=== PATIENT | male | born 1960 | race Caucasian/White ===

== ENCOUNTER 2021-12-18 12:05 | Inpatient (IN) | payer OTHER ==
[2021-12-18] MEDS ORDERED: SODIUM CHLORIDE 0.9% 1,000 ML IV STA (12:20)
[2021-12-18] MEDS ORDERED: SODIUM CHLORIDE 0.9% 500 ML 500 ML IV STA ×2 (12:20→12:51)
[2021-12-18] MEDS ORDERED: IPRATROPIUM-ALBUTEROL 3 ML NEB INHALATION STA (12:20)
[2021-12-18] MEDS ORDERED: methylPREDNISolone SOD SUCCI 125 MG/2 ML VIAL IV STA (12:21)
--- NOTE | 2021-12-18 12:37 | ED ---
SOB HPI - General Chief Complaint: Shortness of Breath Stated Complaint: weakness Time Seen by Provider: 12/18/21 12:05 Source: patient, EMS, RN notes reviewed Mode of arrival: EMS Limitations: no limitations - History of Present Illness Initial Comments: 59-year-old male history of COPD heavy smoker who states he's been having shortness of breath and weakness progressively getting worse over the past year discuss the over last several weeks he states she's been falling a lot. He complains of generalized weakness no focal weakness. He denies any fevers chills nausea vomiting sweats. No phlegm production at this time. No chest pain. He was brought in by EMS. He states his appetite is sometimes clear sometimes not so good. No other complaints this time no other modifying factors he does complain of increased dyspnea on exertion. Per EMS patient's pulse ox image. Room air was 92% he did improve after oxygen was applied. Additionally the patient was noted have a markedly elevated blood pressure. He does deny any headache dizziness blurry vision MD Complaint: shortness of breath - Related Data Home Medications Medication Instructions Recorded Confirmed EPINEPHrine [Primatene Mist] 2 puff INHALATION RT-HS 12/18/21 12/18/21 Allergies Allergy/AdvReac Type Severity Reaction Status Date / Time No Known Allergies Allergy Verified 12/18/21 14:19 Review of Systems ROS Statement: Those systems with pertinent positive or pertinent negative responses have been documented in the HPI. ROS Other: All systems not noted in ROS Statement are negative. Past Medical History Past Medical History: No Reported History History of Any Multi-Drug Resistant Organisms: None Reported Past Surgical History: No Surgical Hx Reported Past Psychological History: No Psychological Hx Reported Smoking Status: Current every day smoker Past Alcohol Use History: Rare Past Drug Use History: Marijuana General Exam - General Exam Comments Initial Comments: Is a well-developed well-nourished awake alert oriented 3 male with a Limitations: no limitations General appearance: alert, anxious Head exam: Present: atraumatic, normocephalic, normal inspection Eye exam: Present: normal appearance, PERRL, EOMI. Absent: scleral icterus, conjunctival injection, periorbital swelling ENT exam: Present: mucous membranes dry Neck exam: Present: normal inspection, full ROM, other (No stridor JVD or bruits). Absent: tenderness, meningismus, lymphadenopathy Respiratory exam: Present: wheezes, decreased breath sounds. Absent: respiratory distress, rales, rhonchi, stridor Cardiovascular Exam: Present: regular rate, normal rhythm, normal heart sounds. Absent: systolic murmur, diastolic murmur, rubs, gallop, clicks GI/Abdominal exam: Present: soft, normal bowel sounds. Absent: distended, tenderness, guarding, rebound, rigid Extremities exam: Present: normal inspection, full ROM, normal capillary refill. Absent: tenderness, pedal edema, joint swelling, calf tenderness Back exam: Present: normal inspection Neurological exam: Present: alert, oriented X3, CN II-XII intact Psychiatric exam: Present: normal affect, normal mood Skin exam: Present: warm, dry, intact, normal color. Absent: rash Course Vital Signs 12/18/21 12/18/21 12/18/21 12:16 12:30 13:00 Temperature 98.0 F Pulse Rate 90 86 83 Respiratory 22 20 21 Rate Blood Pressure 232/135 220/130 207/132 O2 Sat by Pulse 92 L 99 100 Oximetry 12/18/21 12/18/21 12/18/21 13:32 13:43 14:00 Temperature Pulse Rate 80 89 86 Respiratory 20 Rate Blood Pressure 209/117 O2 Sat by Pulse Oximetry 12/18/21 12/18/21 12/18/21 14:30 15:00 15:30 Temperature Pulse Rate 89 93 Respiratory 22 19 18 Rate Blood Pressure 207/120 205/104 201/115 O2 Sat by Pulse 96 99 Oximetry 12/18/21 16:00 Temperature Pulse Rate 98 Respiratory 19 Rate Blood Pressure 193/105 O2 Sat by Pulse 97 Oximetry - Reevaluation(s) Reevaluation #1: 12/18/21 14:34 Further information from family members patient is a heavy drinker he drinks up to a fifth a day of alcohol. Is unclear when her last drink was. Medical Decision Making - Medical Decision Making I did discuss Pf[employer] the patient family as well as with Dr. Long patient will be admitted for treatment of COPD exacerbation also elevated blood pressure. It was from family members that we obtain information the patient may drink up to a fifth of alcohol a day patient denies this. Currently no alcohol in system no clinical evidence of DVTs. - Lab Data Result diagrams: 12/18/21 12:24 12/18/21 12:24 Lab Results 12/18/21 12/18/21 12/18/21 Range/Units 12:24 12:24 12:24 WBC 9.2 (3.8-10.6) k/uL RBC 4.47 (4.30-5.90) m/uL Hgb 16.4 (13.0-17.5) gm/dL Hct 49.2 (39.0-53.0) % MCV 110.1 H (80.0-100.0) fL MCH 36.8 H (25.0-35.0) pg MCHC 33.4 (31.0-37.0) g/dL RDW 15.3 (11.5-15.5) % Plt Count 298 (150-450) k/uL MPV 7.1 Neutrophils % 71 % Lymphocytes % 18 % Monocytes % 6 % Eosinophils % 2 % Basophils % 1 % Neutrophils # 6.5 (1.3-7.7) k/uL Lymphocytes # 1.7 (1.0-4.8) k/uL Monocytes # 0.6 (0-1.0) k/uL Eosinophils # 0.2 (0-0.7) k/uL Basophils # 0.1 (0-0.2) k/uL Manual Slide Review Performed Macrocytosis Marked A PT 10.6 (9.0-12.0) sec INR 1.0 (<1.2) APTT 24.5 (22.0-30.0) sec D-Dimer 1.22 H (<0.60) mg/L FEU Sodium 139 (137-145) mmol/L Potassium 4.2 (3.5-5.1) mmol/L Chloride 98 (98-107) mmol/L Carbon Dioxide 29 (22-30) mmol/L Anion Gap 12 mmol/L BUN 22 H (9-20) mg/dL Creatinine 0.76 (0.66-1.25) mg/dL Est GFR (CKD-EPI)AfAm >90 (>60 ml/min/1.73 sqM) Est GFR (CKD-EPI)NonAf >90 (>60 ml/min/1.73 sqM) Glucose 114 H (74-99) mg/dL Plasma Lactic Acid Rajinder (0.7-2.0) mmol/L Calcium 9.2 (8.4-10.2) mg/dL Magnesium 1.6 (1.6-2.3) mg/dL Total Bilirubin 0.7 (0.2-1.3) mg/dL AST 53 (17-59) U/L ALT 26 (4-49) U/L Alkaline Phosphatase 168 H (38-126) U/L Troponin I (0.000-0.034) ng/mL NT-Pro-B Natriuret Pep pg/mL Total Protein 7.6 (6.3-8.2) g/dL Albumin 3.9 (3.5-5.0) g/dL Lipase (23-300) U/L Urine Color Urine Appearance (Clear) Urine pH (5.0-8.0) Ur Specific [place] (1.001-1.035) Urine Protein (Negative) Urine Glucose (UA) (Negative) Urine Ketones (Negative) Urine Blood (Negative) Urine Nitrite (Negative) Urine Bilirubin (Negative) Urine Urobilinogen (<2.0) mg/dL Ur Leukocyte Esterase (Negative) Serum Alcohol mg/dL Coronavirus (PCR) (Not Detectd) 12/18/21 12/18/21 12/18/21 Range/Units 12:24 12:24 12:24 WBC (3.8-10.6) k/uL RBC (4.30-5.90) m/uL Hgb (13.0-17.5) gm/dL Hct (39.0-53.0) % MCV (80.0-100.0) fL MCH (25.0-35.0) pg MCHC (31.0-37.0) g/dL RDW (11.5-15.5) % Plt Count (150-450) k/uL MPV Neutrophils % % Lymphocytes % % Monocytes % % Eosinophils % % Basophils % % Neutrophils # (1.3-7.7) k/uL Lymphocytes # (1.0-4.8) k/uL Monocytes # (0-1.0) k/uL Eosinophils # (0-0.7) k/uL Basophils # (0-0.2) k/uL Manual Slide Review Macrocytosis PT (9.0-12.0) sec INR (<1.2) APTT (22.0-30.0) sec D-Dimer (<0.60) mg/L FEU Sodium (137-145) mmol/L Potassium (3.5-5.1) mmol/L Chloride (98-107) mmol/L Carbon Dioxide (22-30) mmol/L Anion Gap mmol/L BUN (9-20) mg/dL Creatinine (0.66-1.25) mg/dL Est GFR (CKD-EPI)AfAm (>60 ml/min/1.73 sqM) Est GFR (CKD-EPI)NonAf (>60 ml/min/1.73 sqM) Glucose (74-99) mg/dL Plasma Lactic Acid Rajinder 1.7 (0.7-2.0) mmol/L Calcium (8.4-10.2) mg/dL Magnesium (1.6-2.3) mg/dL Total Bilirubin (0.2-1.3) mg/dL AST (17-59) U/L ALT (4-49) U/L Alkaline Phosphatase (38-126) U/L Troponin I 0.012 (0.000-0.034) ng/mL NT-Pro-B Natriuret Pep pg/mL Total Protein (6.3-8.2) g/dL Albumin (3.5-5.0) g/dL Lipase (23-300) U/L Urine Color Yellow Urine Appearance Clear (Clear) Urine pH 7.0 (5.0-8.0) Ur Specific [place] 1.024 (1.001-1.035) Urine Protein Trace H (Negative) Urine Glucose (UA) Negative (Negative) Urine Ketones Negative (Negative) Urine Blood Negative (Negative) Urine Nitrite Negative (Negative) Urine Bilirubin Negative (Negative) Urine Urobilinogen <2.0 (<2.0) mg/dL Ur Leukocyte Esterase Negative (Negative) Serum Alcohol mg/dL Coronavirus (PCR) (Not Detectd) 12/18/21 12/18/21 12/18/21 Range/Units 12:24 12:24 14:38 WBC (3.8-10.6) k/uL RBC (4.30-5.90) m/uL Hgb (13.0-17.5) gm/dL Hct (39.0-53.0) % MCV (80.0-100.0) fL MCH (25.0-35.0) pg MCHC (31.0-37.0) g/dL RDW (11.5-15.5) % Plt Count (150-450) k/uL MPV Neutrophils % % Lymphocytes % % Monocytes % % Eosinophils % % Basophils % % Neutrophils # (1.3-7.7) k/uL Lymphocytes # (1.0-4.8) k/uL Monocytes # (0-1.0) k/uL Eosinophils # (0-0.7) k/uL Basophils # (0-0.2) k/uL Manual Slide Review Macrocytosis PT (9.0-12.0) sec INR (<1.2) APTT (22.0-30.0) sec D-Dimer (<0.60) mg/L FEU Sodium (137-145) mmol/L Potassium (3.5-5.1) mmol/L Chloride (98-107) mmol/L Carbon Dioxide (22-30) mmol/L Anion Gap mmol/L BUN (9-20) mg/dL Creatinine (0.66-1.25) mg/dL Est GFR (CKD-EPI)AfAm (>60 ml/min/1.73 sqM) Est GFR (CKD-EPI)NonAf (>60 ml/min/1.73 sqM) Glucose (74-99) mg/dL Plasma Lactic Acid Rajinder (0.7-2.0) mmol/L Calcium (8.4-10.2) mg/dL Magnesium (1.6-2.3) mg/dL Total Bilirubin (0.2-1.3) mg/dL AST (17-59) U/L ALT (4-49) U/L Alkaline Phosphatase (38-126) U/L Troponin I (0.000-0.034) ng/mL NT-Pro-B Natriuret Pep 528 pg/mL Total Protein (6.3-8.2) g/dL Albumin (3.5-5.0) g/dL Lipase 42 (23-300) U/L Urine Color Urine Appearance (Clear) Urine pH (5.0-8.0) Ur Specific [place] (1.001-1.035) Urine Protein (Negative) Urine Glucose (UA) (Negative) Urine Ketones (Negative) Urine Blood (Negative) Urine Nitrite (Negative) Urine Bilirubin (Negative) Urine Urobilinogen (<2.0) mg/dL Ur Leukocyte Esterase (Negative) Serum Alcohol <10 mg/dL Coronavirus (PCR) Not Detected (Not Detectd) - EKG Data -: EKG Interpreted by Me EKG shows normal: sinus rhythm EKG Comments: No signs of 87. ND interval 149 QRS 79 QT since QTC 363/[address]-T wave changes some artifact present - Radiology Data Radiology results: report reviewed (Imaging revealed report no evidence of acute pulmonary embolus or some evidence of some scattered pulmonary markings but no definitive infiltrate), image reviewed Critical Care Time Critical Care Time: Yes Total Critical Care Time: 39 Critical Care Time: Critical care time included initial presentation with history physical labs x-ra ys discussed with paramedics upon arrival multiple reevaluation the patient discussed with the patient family discussed with the medicine physician admission orders and documentation of the above Disposition Clinical Impression: COPD with exacerbation, Bronchitis, Hypertensive urgency, Dehydration Disposition: ADMITTED IP TO THIS [facility] Condition: Fair Referrals: None,Stated [Primary Care Provider] - 1-2 days Decision Date: 12/18/21 Decision Time: 16:00
[2021-12-18 13:08] LABS: Basophils # (A) 0.1 k/uL (0-0.2); Basophils % (A) 1 %; Eosinophils # (A) 0.2 k/uL (0-0.7); Eosinophils % (A) 2 %; HCT 49.2 % (39.0-53.0); HGB 16.4 gm/dL (13.0-17.5); Lymphocytes # (A) 1.7 k/uL (1.0-4.8); Lymphocytes % (A) 18 %; MCH 36.8 pg (25.0-35.0); MCHC 33.4 g/dL (31.0-37.0); MCV 110.1 fL (80.0-100.0); Macrocytosis Marked; Mean Platelet Volume 7.1; Monocytes # (A) 0.6 k/uL (0-1.0); Monocytes % (A) 6 %; Neutrophils # (A) 6.5 k/uL (1.3-7.7); Neutrophils % (A) 71 %; Partial Thromboplastin Time 24.5 sec (22.0-30.0); Platelet Count 298 k/uL (150-450); Prothrombin Time 10.6 sec (9.0-12.0); RBC 4.47 m/uL (4.30-5.90); RDW 15.3 % (11.5-15.5); WBC 9.2 k/uL (3.8-10.6)
[2021-12-18 13:09] LABS: ALT 26 U/L (4-49); AST 53 U/L (17-59); African American GFR (CKD) >90 (>60 ml/min/1.73 sqM); Albumin 3.9 g/dL (3.5-5.0); Alkaline Phosphatase 168 U/L (38-126); Anion Gap 12 mmol/L; Blood Urea Nitrogen 22 mg/dL (9-20); Calcium 9.2 mg/dL (8.4-10.2); Carbon Dioxide 29 mmol/L (22-30); Chloride 98 mmol/L (98-107); Glucose 114 mg/dL (74-99); Magnesium 1.6 mg/dL (1.6-2.3); Non-African American GFR(CKD) >90 (>60 ml/min/1.73 sqM); Potassium 4.2 mmol/L (3.5-5.1); Sodium 139 mmol/L (137-145); Total Bilirubin 0.7 mg/dL (0.2-1.3); Total Protein 7.6 g/dL (6.3-8.2)
--- NOTE | 2021-12-18 13:43 | CT ---
EXAMINATION TYPE: CT brain wo con CT DLP: 1149.4 mGycm, Automated exposure control for dose reduction was used. DATE OF EXAM: 12/18/2021 1:28 PM COMPARISON: None. CLINICAL INDICATION:Male, 61 years old with history of Head trauma, minor, normal mental status, head trauma, minor, normal mental status TECHNIQUE: Brain: Axial CT images of the brain were obtained with coronal and sagittal reformats created and rev iewed. Contrast used: None. Oral contrast used: None. FINDINGS: Brain: Extra-axial spaces: No abnormal extra-axial fluid collections. Ventricular system: Within normal limits Cerebral parenchyma: Encephalomalacia the left posterior parietal region from remote injury. Hypodens e injury of the left ha. No acute intraparenchymal hemorrhage or mass effect. The blevins-white junct ion is well differentiated. Cerebellum: Unremarkable. Mass effect: No evidence of midline shift. Intracranial vasculature: Atherosclerotic calcifications of the intracranial vessels. Soft tissues: Normal. Calvarium/osseous structures: No depressed skull fracture. Paranasal sinuses and mastoid air cells: Mild scattered paranasal sinus disease. Visualized orbits: Orbital contents are intact. IMPRESSION: 1. No acute intracranial process. 2. 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
--- NOTE | 2021-12-18 14:08 | XR ---
EXAMINATION TYPE: XR chest 2V DATE OF EXAM: 12/18/2021 COMPARISON: None HISTORY: 61 year-old male shortness of breath, difficulty breathing, CHF TECHNIQUE: AP and lateral views FINDINGS: Heart limits of normal in size. Aorta and pulmonary vasculature within normal limits. Hyperinflation. Possible subtle pulmonary nodule versus nipple shadow periphery of the left mid to lower lung. No co nsolidation or pleural effusion. IMPRESSION: COPD and borderline heart size. No definite acute process. Nodularity peripherally in the left mid to lower lung could represent nipple shadow. Follow-up radiograph with nipple marker in 4-6 weeks to re assess.
[2021-12-18] MEDS ORDERED: hydrALAZINE HCL 20 MG/ML 1 ML VIAL IVP STA ×2 (14:13→15:33)
--- NOTE | 2021-12-18 14:57 | CT ---
EXAMINATION TYPE: CT angio chest CT DLP: 328.8 mGycm, Automated exposure control for dose reduction was used. DATE OF EXAM: 12/18/2021 2:42 PM COMPARISON: Chest radiograph from same day. CLINICAL INDICATION:Male, 61 years old with history of PE suspected; TECHNIQUE/CONTRAST: CTA scan of the thorax is performed with IV Contrast, patient injected with 100 mL of Isovue 370, pul monary embolism protocol. MIP images are created and reviewed. FINDINGS: Pulmonary Artery: There is no evidence for a filling defect within the pulmonary vasculature to sugge st acute pulmonary embolism. The pulmonary artery is of normal size. Lungs/Pleura: Few scattered opacities are seen within the lingula. And peripheral right lower lobe. N o evidence of focal consolidation, pleural effusion or pneumothorax. Airway: Opacified right lower lobe airway seen on series 406 image 103. Heart: Heart is within normal limits for size.. Vasculature: No evidence of aortic aneurysm. Mediastinum: No gross evidence of adenopathy. Musculoskeletal: No acute osseous abnormalities Soft Tissues: Bilateral gynecomastia changes noted. Lower neck: No significant findings. Upper Abdomen: Biliary sludge versus vicarious excretion of contrast. IMPRESSION: 1. No evidence of pulmonary embolism. 2. Scattered airspace opacities within the lingula and right peripheral lateral lower lobe concerning for infectious/inflammatory process. 3. Single right lower lobe which is opacified likely representing retained secretions.
[2021-12-18 15:10] LABS: Alcohol <10 mg/dL; Lipase 42 U/L (23-300)
[2021-12-18 15:27] LABS: Appearance,Urine Clear (Clear); Bilirubin,Urine Negative (Negative); Blood,Urine Negative (Negative); Color,Urine Yellow; Glucose,Urine (UA) Negative (Negative); Ketones,Urine Negative (Negative); Leukocyte Esterase,Urine Negative (Negative); Nitrite,Urine Negative (Negative); Protein,Urine Trace (Negative); Specific Gravity,Urine 1.024 (1.001-1.035); Urobilinogen,Urine <2.0 mg/dL (<2.0)
[2021-12-18] MEDS ORDERED: NALOXONE 0.4 MG/ML 1 ML VIAL IV PRN (16:53)
[2021-12-18] MEDS ORDERED: ACETAMINOPHEN TAB 325 MG TAB PO PRN (16:53)
[2021-12-18] MEDS ORDERED: LEVOFLOXACIN 750 MG TAB PO STA (16:58)
[2021-12-18] MEDS ORDERED: hydrALAZINE HCL 20 MG/ML 1 ML VIAL IVP PRN (17:15)
--- NOTE | 2021-12-18 17:23 | P.HPIM ---
History of Present Illness H&P Date: 12/18/21 Chief Complaint: Shortness of breath and weakness Patient is a 59-year-old male with a past medical history of tobacco abuse and likely underlying COPD who presents to the ED because his brother told him to come in. Patient states that his brother saw him at home and did not like the way he looked so told him to come in to get evaluated. Patient states that he has been having shortness of breath for years and over the last week he noticed increased sputum production. He also states that he has had weakness for years and again over the last week he has noticed that he has been falling more. Patient states that he lives alone at home. He states that he depends on his brother to get all his groceries. Patient states that he smokes 1 and 1/2 pack per day. He states that he hasn't seen a physician since he was in the which was "many years ago". He states that he drinks 2 shots of alcohol at night to help him sleep. He is currently denying any withdrawal symptoms or urge to smoke. Patient states that he wants to quit smoking and make a change in his life. In the ED patient's labs were unremarkable except for an elevated d-dimer and A LP. So patient had a CTA chest done that was negative for pulmonary embolism but did show scattered areas of opacities within the lingula and right peripheral lateral lobe and single right lower lobe which is opacified likely due to retained secretions. Patient denies any fever or chills. His WBC is 9.2. He is afebrile. Patient was given Levaquin and breathing treatments and IV Solu-Medrol for COPD exacerbation. In the ED patient's blood pressure was also above 200 systolically. He was gi akrmen IV hydralazine. Patient denies taking any medications at home. Review of Systems 10 ROS reviewed and are negative except as noted in HPI Past Medical History Past Medical History: No Reported History History of Any Multi-Drug Resistant Organisms: None Reported Past Surgical History: No Surgical Hx Reported Past Psychological History: No Psychological Hx Reported Smoking Status: Current every day smoker Past Alcohol Use History: Rare Past Drug Use History: Marijuana Medications and Allergies Home Medications Medication Instructions Recorded Confirmed Type EPINEPHrine [Primatene Mist] 2 puff INHALATION RT-HS 12/18/21 12/18/21 History Allergies Allergy/AdvReac Type Severity Reaction Status Date / Time No Known Allergies Allergy Verified 12/18/21 14:19 Physical Exam Osteopathic Statement: *. No significant issues noted on an osteopathic structural exam other than those noted in the History and Physical/Consult. Vitals: Vital Signs Temp Pulse Resp BP Pulse Ox 12/18/21 17:00 94 18 183/96 97 12/18/21 16:30 98 17 181/106 99 12/18/21 16:00 98 19 193/105 97 12/18/21 15:30 93 18 201/115 99 12/18/21 15:00 89 19 205/104 96 12/18/21 14:30 22 207/120 12/18/21 14:00 86 20 209/117 12/18/21 13:43 89 12/18/21 13:32 80 12/18/21 13:00 83 21 207/132 100 12/18/21 12:30 86 20 220/130 99 12/18/21 12:16 98.0 F 90 22 232/135 92 L Intake and Output 12/18/21 12/18/21 12/18/21 06:59 14:59 22:59 Other: Weight 68.039 kg General: [Alert and oriented, appears chronically debilitated Appears older than his age]. Eye: [PERRL, EOMI, normal conjunctiva]. HENT: [Normocephalic, clear tympanic membranes, normal hearing, dry oral mucosa, no scleral icterus, no sinus tenderness]. Neck: [Supple, non-tender, no carotid bruits, no JVD, no lymphadenopathy]. Lungs: [Diminished breath sounds bilaterally, non-labored respiration]. Heart: [Normal rate, regular rhythm, no murmur, gallop or edema]. Abdomen: [Soft, non-tender, non-distended, normal bowel sounds, no masses]. Musculoskeletal: [Normal range of motion and strength, no tenderness or swelling]. Neurologic: [Awake, alert, and oriented X3, CN II-XII intact]. Psychiatric: [Cooperative, appropriate mood and affect]. Results CBC & Chem 7: 12/18/21 12:24 12/18/21 12:24 Labs: Abnormal Lab Results - Last 24 Hours (Table) 12/18/21 12/18/21 12/18/21 Range/Units 12:24 12:24 12:24 MCV 110.1 H (80.0-100.0) fL MCH 36.8 H (25.0-35.0) pg Macrocytosis Marked A D-Dimer 1.22 H (<0.60) mg/L FEU BUN 22 H (9-20) mg/dL Glucose 114 H (74-99) mg/dL Alkaline Phosphatase 168 H (38-126) U/L Urine Protein (Negative) 12/18/21 Range/Units 12:24 MCV (80.0-100.0) fL MCH (25.0-35.0) pg Macrocytosis D-Dimer (<0.60) mg/L FEU BUN (9-20) mg/dL Glucose (74-99) mg/dL Alkaline Phosphatase (38-126) U/L Urine Protein Trace H (Negative) Assessment and Plan Assessment: Shortness of breath Likely due to COPD exacerbation and acute bronchitis Doubt patient has pneumonia since he has no fever or leukocytosis We'll start the patient on duo nebs, steroids, Levaquin We'll consult pulmonology as patient will need close follow-up and we'll also need to be started on inhalers Hypertension urgency We'll start the patient on losartan and nifedipine Generalized weakness Consult PT OT Elevated ALP Patient denying any right upper quadrant pain We'll check a PSA Elevated d-dimer CTA chest negative for pulmonary embolism No clinical evidence of DVT Noncompliant with follow-up Patient counseled that he needs to follow-up with his doctors closely. History of alcohol use Patient counseled on alcohol cessation On admission his alcohol level is less than 10 and patient has no withdrawal symptoms We'll continue to monitor closely for any withdrawal symptoms Tobacco abuse Nicotine patch CODE STATUS:full code DVT prophylaxis: Lovenox Discussed with: Patient, ER, rn Anticipated length of stay < than [address]: home versus group home facility A total of 50 minutes was spent on the care of this complex patient more than 50% of the time was spent in counseling and care coordination.
[2021-12-18] MEDS: SODIUM CHLORIDE 0.9% 1,000 ML IV SCH (19:00)
[2021-12-18] MEDS: NICOTINE 21MG/24HR PATCH TRANSDERM SCH (19:00)
[2021-12-18] MEDS: LOSARTAN 50 MG TAB PO SCH (19:00)
[2021-12-18] MEDS: methylPREDNISolone SOD SUCCI 125 MG/2 ML VIAL IV SCH ×2 (19:00→23:20)
[2021-12-18] MEDS: IPRATROPIUM-ALBUTEROL 3 ML NEB INHALATION SCH (19:09)
[2021-12-18] MEDS: NIFEdipine XL 30 MG TAB.ER.24 PO SCH (19:33)
[2021-12-18 20:37] LABS: Glucose,Whole Blood 178 mg/dL (70-110)
[2021-12-19] MEDS ORDERED: IPRATROPIUM-ALBUTEROL 3 ML NEB INHALATION PRN (00:31)
[2021-12-19] MEDS: IPRATROPIUM-ALBUTEROL 3 ML NEB INHALATION SCH ×5 (00:40→20:19)
[2021-12-19] MEDS: SODIUM CHLORIDE 0.9% 1,000 ML IV SCH ×4 (05:00→23:59)
[2021-12-19] MEDS: methylPREDNISolone SOD SUCCI 125 MG/2 ML VIAL IV SCH ×4 (05:08→23:58)
[2021-12-19 06:04] LABS: Glucose,Whole Blood 133 mg/dL (70-110)
[2021-12-19] MEDS: ENOXAPARIN 40 MG/0.4 ML SYRINGE SQ SCH (08:20)
[2021-12-19] MEDS: LOSARTAN 50 MG TAB PO SCH (08:20)
[2021-12-19] MEDS: NICOTINE 21MG/24HR PATCH TRANSDERM SCH (08:20)
[2021-12-19] MEDS: NIFEdipine XL 30 MG TAB.ER.24 PO SCH (08:21)
--- NOTE | 2021-12-19 14:09 | P.CNPUL ---
History of Present Illness Consult date: 12/19/21 Reason for consult: dyspnea, COPD History of present illness: This is a 59-year-old male patient, came into the hospital because of worsening shortness of breath. He was told by family members to presented to the hospital as the patient was having significant amount of difficulties breathing. Is a chronic smoker. He has not seen a air launch weapons technician in the past. The patient was smoking many ask of cigarettes a day needs trying to quit smoking for now. He continues to smoke 1 pack of cigarettes a day. No maintenance inhalers. No Oxygen therapy. No previous hospitalizations for any pulmonary related complications. The patient was using Primatene Mist on outpatient basis. The patient presented to the hospital because of increased dyspnea. Cough and congestion and wheezing was also present. No hemoptysis. No pleurisy. Chest x-ray was done. CT angiogram was done. No evidence of any pulmonary embolism. Some limited scattered opacities bilaterally involving the lingula in the periphery of the lower lobes that was attributed to retained secretions. The white cell count was at 9.2 with a hemoglobin of 16.4 and a platelet count of 298. BUN is at 22 with a creatinine 0.7. Sodium is at 139. The patient has a negative UA. Alcohol level was negative. COVID 19 testing was negative. The patient states that he has taken vaccination 2 for COVID 19. He is currently on a combination of bronchodilators and steroids and is also on empiric antibiotic coverage with Levaquin. IV fluids of normal saline at the rate of 130 mL an hour. Most of any cardiac disease. Review of Systems Constitutional: Denies chills, Denies fever Eyes: denies as per HPI, denies blurred vision, denies bulging eye, denies decreased vision, denies diplopia, denies discharge, denies dry eye, denies irritation, denies itching, denies pain, denies photophobia, denies loss of pe ripheral vision, denies loss of vision, denies tunnel vision/blind spots Ears: deny: decreased hearing, ear discharge, earache, tinnitus Ears, nose, mouth and throat: Reports as per HPI Breasts: absent: as per HPI, gynecomastia Cardiovascular: Reports decreased exercise tolerance, Reports dyspnea on exertion Respiratory: Reports cough, Reports cough with sputum, Reports dyspnea, Reports wheezing Gastrointestinal: Reports as per HPI Genitourinary: Reports as per HPI Musculoskeletal: Reports as per HPI Musculoskeletal: absent: ankle pain, ankle stiffness, ankle swelling Integumentary: Reports as per HPI Neurological: Reports as per HPI Psychiatric: Reports as per HPI Endocrine: Reports as per HPI Hematologic/Lymphatic: Reports as per HPI Allergic/Immunologic: Reports as per HPI Past Medical History Past Medical History: No Reported History, COPD History of Any Multi-Drug Resistant Organisms: None Reported Past Surgical History: No Surgical Hx Reported Past Anesthesia/Blood Transfusion Reactions: No Reported Reaction Past Psychological History: No Psychological Hx Reported Smoking Status: Current every day smoker Past Alcohol Use History: Rare Past Drug Use History: Marijuana Medications and Allergies Home Medications Medication Instructions Recorded Confirmed Type EPINEPHrine [Primatene Mist] 2 puff INHALATION RT-HS 12/18/21 12/18/21 History Allergies Allergy/AdvReac Type Severity Reaction Status Date / Time No Known Allergies Allergy Verified 12/18/21 14:19 Physical Exam Vitals: Vital Signs Temp Pulse Pulse Resp BP BP Pulse Ox 12/19/21 11:44 104 H 12/19/21 11:32 99 12/19/21 11:18 101 H 17 144/84 97 12/19/21 08:07 96 12/19/21 08:00 101 H 16 147/86 95 12/19/21 07:56 95 12/19/21 04:00 85 18 152/88 95 12/19/21 02:00 86 21 12/19/21 00:00 97.7 F 86 20 165/90 97 12/18/21 20:29 169/98 12/18/21 20:00 98.0 F 90 20 185/100 96 12/18/21 19:19 92 12/18/21 19:09 90 12/18/21 17:00 94 18 183/96 97 12/18/21 16:30 98 17 181/106 99 12/18/21 16:00 98 19 193/105 97 12/18/21 15:30 93 18 201/115 99 12/18/21 15:00 89 19 205/104 96 12/18/21 14:30 22 207/120 12/18/21 14:00 86 20 209/117 12/18/21 13:43 89 12/18/21 13:32 80 12/18/21 13:00 83 21 207/132 100 12/18/21 12:30 86 20 220/130 99 12/18/21 12:16 98.0 F 90 22 232/135 92 L Intake and Output 12/18/21 12/19/21 12/19/21 22:59 06:59 14:59 Intake Total 260 Output Total 300 Balance -40 Intake: Intake, IV Titration 260 Amount Sodium Chloride 0.9% 1, 260 000 ml @ 130 mls/hr IV . Q7H42M [facility] Rx#:[id number] Output: Urine 300 Other: Voiding Method Urinal Urinal # Voids 2 Weight 68.039 kg The patient appeared well nourished and normally developed. Vital signs as documented. Head exam is unremarkable. No scleral icterus or corneal arcus no dmitri. Neck is without jugular venous distension, thyromegaly, or carotid bruits. Carotid upstrokes are brisk bilaterally. Lungs sounds are diminished and the patient is diffuse expiratory wheezes throughout the lung his bilaterally and the patient is prolongation of exhalation phase of breathing.. Cardiac exam reveals the PMI to be normally sized and situated. Rhythm is regular. First and second heart sounds normal. No murmurs, rubs or gallops. Abdominal exam reveals normal bowel sounds, no masses, no organomegaly and no aortic enlargement. Extremities are nonedematous and both femoral and pedal pulses are normal.Examination of the skin revealed no evidence of significant rashes, suspicious appearing nevi or other concerning lesions.Neurologically, the patient is awake and alert and the patient does not have any focal neurological deficit. Cranial nerves are essentially intact. Results - Laboratory Findings CBC and BMP: 12/18/21 12:24 12/18/21 12:24 PT/INR, D-dimer PT 10.6 sec (9.0-12.0) 12/18/21 12:24 INR 1.0 (<1.2) 12/18/21 12:24 D-Dimer 1.22 mg/L FEU (<0.60) H 12/18/21 12:24 Abnormal lab findings: Abnormal Labs 12/18/21 12/18/21 12/18/21 12:24 12:24 12:24 MCV 110.1 H MCH 36.8 H Macrocytosis Marked A D-Dimer 1.22 H BUN 22 H Glucose 114 H POC Glucose (mg/dL) Alkaline Phosphatase 168 H Urine Protein 12/18/21 12/18/21 12/19/21 12:24 20:36 06:01 MCV MCH Macrocytosis D-Dimer BUN Glucose POC Glucose (mg/dL) 178 H 133 H Alkaline Phosphatase Urine Protein Trace H - Diagnostic Findings Chest x-ray: image reviewed CT scan - chest: image reviewed Assessment and Plan Plan: Acute COPD exacerbation Shortness of breath secondary to above. The patient's has acute on top of chronic dyspnea and his chronic shortness of breath related to COPD. Acute hypoxic respiratory failure secondary to above, currently on 2 L O2 nasal cannula Smoker Hypertension Plan Agree on the current treatment Continue bronchodilators and steroids and antibiotics Smoking cessation counseling was done We'll need outpatient follow-up regarding COPD. We'll regulate and just maintenance insulin medications for COPD and obtain a pulmonary function test and monitor patient regular basis. CAT scan of the chest was noted. No e vidence of any malignancy. Presentation is typical for COPD exacerbation. Nicotine patch BP control medicine Empiric antibiotic coverage with Levaquin 750 mg for the next 5-7 days We'll follow
--- NOTE | 2021-12-19 14:49 | P.PN ---
Subjective Progress Note Date: 12/19/21 Patient stated that his breathing is much better today. Patient blood pressures also better controlled. Objective - Vital Signs Vital signs: Vital Signs Temp 97.7 F 12/19/21 12:00 Pulse 87 12/19/21 14:00 Resp 17 12/19/21 14:00 BP 143/83 12/19/21 12:00 Pulse Ox 96 12/19/21 12:00 FiO2 Intake & Output 12/18/21 12/19/21 12/19/21 18:59 06:59 18:59 Intake Total 260 Output Total 300 Balance -40 Weight 68.039 kg Intake: Intake, IV Titration 260 Amount Sodium Chloride 0.9% 1, 260 000 ml @ 130 mls/hr IV . Q7H42M [facility] Rx#:[id number] Output: Urine 300 Other: Voiding Method Urinal # Voids 2 - Exam General examination - Alert and Oriented 3 in NAD, appears chronically debilitated Heart - + S1S2 no murmurs Lungs -diminished breath sounds bilaterally Abdomen soft NT ND +ve BS Extremities - No edema MEDICARE SPECIALIST - Moving all 4 extremities spontaneously Psych - Calm and cooperative - Labs CBC & Chem 7: 12/18/21 12:24 12/18/21 12:24 Labs: Abnormal Lab Results - Last 24 Hours (Table) 12/18/21 12/18/21 12/19/21 Range/Units 12:24 20:36 06:01 POC Glucose (mg/dL) 178 H 133 H (70-110) mg/dL Urine Protein Trace H (Negative) Assessment and Plan Assessment: Shortness of breath Likely due to COPD exacerbation and acute bronchitis Doubt patient has pneumonia since he has no fever or leukocytosis Resume duo nebs, steroids, Levaquin Pulmonology following Improving Hypertension urgency Patient started on losartan and nifedipine Blood pressure better controlled this morning Generalized weakness Consult PT OT Elevated ALP Patient denying any right upper quadrant pain We'll check a PSA Elevated d-dimer CTA chest negative for pulmonary embolism No clinical evidence of DVT Noncompliant with follow-up Patient counseled that he needs to follow-up with his doctors closely. History of alcohol use Patient counseled on alcohol cessation On admission his alcohol level is less than 10 and patient has no withdrawal symptoms We'll continue to monitor closely for any withdrawal symptoms Tobacco abuse Nicotine patch CODE STATUS:full code DVT prophylaxis: Lovenox Anticipated discharge place: home versus snf facility
[2021-12-19] MEDS: LEVOFLOXACIN 750 MG TAB PO SCH (16:40)
[2021-12-19 17:07] LABS: Glucose,Whole Blood 175 mg/dL (70-110)
[2021-12-19 20:13] LABS: Glucose,Whole Blood 192 mg/dL (70-110)
[2021-12-20 06:00] LABS: Glucose,Whole Blood 143 mg/dL (70-110)
[2021-12-20] MEDS: methylPREDNISolone SOD SUCCI 125 MG/2 ML VIAL IV SCH ×3 (06:46→17:18)
[2021-12-20] MEDS: SODIUM CHLORIDE 0.9% 1,000 ML IV SCH (06:48)
[2021-12-20] MEDS: NIFEdipine XL 30 MG TAB.ER.24 PO SCH (08:29)
[2021-12-20] MEDS: ENOXAPARIN 40 MG/0.4 ML SYRINGE SQ SCH (08:29)
[2021-12-20] MEDS: NICOTINE 21MG/24HR PATCH TRANSDERM SCH (08:29)
[2021-12-20] MEDS: LOSARTAN 50 MG TAB PO SCH (08:29)
[2021-12-20 08:55] LABS: Glucose,Whole Blood 235 mg/dL (70-110)
[2021-12-20] MEDS: IPRATROPIUM-ALBUTEROL 3 ML NEB INHALATION SCH ×4 (09:08→19:38)
--- NOTE | 2021-12-20 09:25 | CT ---
EXAMINATION TYPE: CT brain wo con DATE OF EXAM: 12/20/2021 COMPARISON: 12/18/2021 HISTORY: CODE STROKE CT DLP: 1119.[address] of the brain was performed. The ventricles, basal cisterns and sulci overlying the cerebral convexities demonstrate mild enlargem ent. Small area of remote insult posterior left MCA territory. There is no evidence for intracranial hemorrhage or sulcal effacement. There is decreased attenuation about the periventricular white matter and deep white matter of both c erebral hemispheres, compatible with chronic small vessel ischemia. Differential diagnosis does inclu de demyelination. No mass effects are seen.No midline shift. Osseous calvarium is intact. If symptoms persist consider MRI. IMPRESSION: 1. Age related atrophic and chronic small vessel ischemic change without acute intracranial process s een at this time.
--- NOTE | 2021-12-20 10:08 | CT ---
EXAMINATION TYPE: CODE STROKE: CTA head neck DATE OF EXAM: 12/20/2021 COMPARISON: None HISTORY: CODE STROKE CONTRAST: Performed with IV Contrast, patient injected with 65 mL of Isovue 370. Combination Contrast CTA cervical carotids and [place] CTA cervical carotids with 3-D recons truction Contrast CTA of the cervical carotids was performed 3-D reconstruction imaging obtained at a separate workstation. Right carotid system: Mild plaque is seen of the right common carotid artery. There is mild plaque a lso noted at the carotid bulb and proximal ICA. No significant diameter reduction. ECA is patent. Right vertebral artery appears unremarkable. Left carotid system: Mild plaque is seen of the left common carotid artery. There is mild plaque als o noted at the carotid bulb and proximal ICA. No significant diameter reduction. ECA is patent. Lef t vertebral artery appears unremarkable. IMPRESSION: 1. No significant diameter reduction to account for the patient's symptoms. CTA point [place] of [place] with 3-D reconstruction Contrast CTA of the point lay [place] of [place] was performed 3-D reconstruction imaging obtained at a separate workstation. Vertebrobasilar system as well as intracranial portions of the internal carotid arteries and their ma dora tributaries are patent. I do not see evidence for sizable aneurysm or vascular malformation. Di minutive A1 segment right TERRENCE. Atherosclerotic changes MCA's bilaterally. Please note MRI provides gr eater sensitivity and specificity. Visualized brain appears grossly unremarkable. IMPRESSION: 1. Atherosclerotic changes. No obvious vascular occlusion. NASCET criteria was used in interpretation of this exam?
[2021-12-20] MEDS: ASPIRIN 81 MG PO SCH ×2 (10:10→10:47)
[2021-12-20] MEDS: ATORVASTATIN 40 MG TAB PO SCH (10:10)
[2021-12-20] MEDS ORDERED: LORazepam 1 MG/0.5 ML VIAL IV STA (10:13)
[2021-12-20] MEDS ORDERED: LORazepam 1 MG/0.5 ML VIAL ONE (10:13)
[2021-12-20] MEDS ORDERED: LORazepam 1 MG/0.5 ML VIAL IV PRN (10:14)
[2021-12-20] MEDS ORDERED: hydrALAZINE HCL 20 MG/ML 1 ML VIAL IVP STA (10:22)
[2021-12-20 10:23] LABS: Glucose,Whole Blood 188 mg/dL (70-110)
[2021-12-20] MEDS ORDERED: ASPIRIN 81 MG PO STA (10:45)
[2021-12-20] MEDS ORDERED: levETIRAcetam IV 1,000 MG in SALINE 1 100ML.BAG IVPB STA (10:55)
[2021-12-20 11:00] LABS: Basophils % (A) 0 %; Eosinophils % (A) 0 %; HCT 46.5 % (39.0-53.0); HGB 14.8 gm/dL (13.0-17.5); Lymphocytes # (A) 0.5 k/uL (1.0-4.8); Lymphocytes % (A) 3 %; MCH 35.6 pg (25.0-35.0); MCHC 31.8 g/dL (31.0-37.0); MCV 111.9 fL (80.0-100.0); Macrocytosis Marked; Monocytes # (A) 0.4 k/uL (0-1.0); Monocytes % (A) 3 %; Neutrophils # (A) 15.2 k/uL (1.3-7.7); Neutrophils % (A) 94 %; Platelet Count 258 k/uL (150-450); RBC 4.16 m/uL (4.30-5.90); RDW 15.1 % (11.5-15.5); WBC 16.2 k/uL (3.8-10.6)
[2021-12-20 11:22] LABS: Glucose,Whole Blood 152 mg/dL (70-110)
[2021-12-20] MEDS ORDERED: Magnesium Replacement Protocol 1 EACH MISC MISCELLANE PRN (11:25)
--- NOTE | 2021-12-20 11:54 | P.PN ---
Subjective Progress Note Date: 12/20/21 This is a 59-year-old male patient, came into the hospital because of worsening shortness of breath. He was told by family members to presented to the hospital as the patient was having significant amount of difficulties breathing. Is a chronic smoker. He has not seen a glove turner and former in the past. The patient was smoking many ask of cigarettes a day needs trying to quit smoking for now. He continues to smoke 1 pack of cigarettes a day. No maintenance inhalers. No Oxygen therapy. No previous hospitalizations for any pulmonary related complications. The patient was using Primatene Mist on outpatient basis. The patient presented to the hospital because of increased dyspnea. Cough and swapna estion and wheezing was also present. No hemoptysis. No pleurisy. Chest x-ray was done. CT angiogram was done. No evidence of any pulmonary embolism. Some limited scattered opacities bilaterally involving the lingula in the periphery of the lower lobes that was attributed to retained secretions. The white cell count was at 9.2 with a hemoglobin of 16.4 and a platelet count of 298. BUN is at 22 with a creatinine 0.7. Sodium is at 139. The patient has a negative UA. Alcohol level was negative. COVID 19 testing was negative. The patient states that he has taken vaccination 2 for COVID 19. He is currently on a combination of bronchodilators and steroids and is also on empiric antibiotic coverage with Levaquin. IV fluids of normal saline at the rate of 130 mL an hour. Most of a ny cardiac disease. On 12/20/2021, the patient got transferred to the intensive care unit. I was a pproached by the hospitalist stating that the patient had some neurologic events. Earlier this morning, the patient some numbness in his tongue and following that he had a right facial droop and right-sided weakness and he became aphasic. Based on that, a code stroke was initiated. The patient un derwent a CAT scan of the brain that showed age-related atrophy and chronic small vessel ischemic changes without any acute abnormalities. Following that, the patient was given a CT angiogram that was done this morning showed atherosclerotic changes without any obvious vascular occlusion. No significant reduction or changes in the common carotid on the right than the left. The vertebrobasilar system was also patent. After the patient came back from CAT scan, he had a brief seizure episodes when post ictal and subsequently regained his consciousness. The stroke team was consulted and the patient was not found to be a good candidate for TPA. His initial NIH score was 2 and later on dropp ed down to 1. He was hypertensive during this process and his current blood pressure is under better control with the most recent systolic blood pressure being 158 with a diastolic of 94. His blood pressure peaked at 206/97. He is currently on 2 L of oxygen by nasal cannula with pulse ox of 97%. His communicating. No focal neurological deficits. Adequate motor function on the right side. Adequate speech. Pupils are equal and reactive to light. Neurology has been informed. The patient was given and following that he'll be maintained on. He is on Loestrin status remains stable. Objective - Vital Signs Vital signs: Vital Signs Temp 98.2 F 12/20/21 11:16 Pulse 101 H 12/20/21 11:16 Resp 23 12/20/21 11:16 BP 168/100 12/20/21 11:16 Pulse Ox 97 12/20/21 10:33 FiO2 98.2 12/20/21 11:16 Intake & Output 12/19/21 12/20/21 12/20/21 18:59 06:59 18:59 Intake Total 360 133 Output Total 1300 250 Balance 360 -1300 -117 Intake: IV 15 Invasive Line 1 5 Invasive Line 2 10 Oral 360 118 Output: Urine 1300 250 Other: Voiding Method Urinal Urinal # Voids 2 - Exam The patient appeared well nourished and normally developed. Vital signs as documented. Head exam is unremarkable. No scleral icterus or corneal arcus noted. Neck is without jugular venous distension, thyromegaly, or carotid bruits. Carotid upstrokes are brisk bilaterally. Lungs sounds are diminished and the patient is diffuse expiratory wheezes throughout the lung his bilaterally and the patient is prolongation of exhalation phase of breathing.. Cardiac exam reveals the PMI to be normally sized and situated. Rhythm is regular. First and second heart sounds normal. No murmurs, rubs or gallops. Abdominal exam reveals normal bowel sounds, no masses, no organomegaly and no aortic enlargement. Extremities are nonedematous and both femoral and pedal pulses are normal.Examination of the skin revealed no evidence of significant rashes, suspicious appearing nevi or other concerning lesions.Neurologically, the patient is awake and alert and the patient does not have any focal neurological deficit. Cranial nerves are essentially intact. - Labs CBC & Chem 7: 12/20/21 09:29 12/18/21 12:24 Labs: Abnormal Lab Results - Last 24 Hours (Table) 12/19/21 12/19/21 12/20/21 Range/Units 17:06 20:12 05:59 WBC (3.8-10.6) k/uL RBC (4.30-5.90) m/uL MCV (80.0-100.0) fL MCH (25.0-35.0) pg Macrocytosis POC Glucose (mg/dL) 175 H 192 H 143 H (70-110) mg/dL Magnesium (1.6-2.3) mg/dL 12/20/21 12/20/21 12/20/21 Range/Units 08:43 09:29 09:29 WBC 16.2 H (3.8-10.6) k/uL RBC 4.16 L (4.30-5.90) m/uL MCV 111.9 H (80.0-100.0) fL MCH 35.6 H (25.0-35.0) pg Macrocytosis Marked A POC Glucose (mg/dL) 235 H (70-110) mg/dL Magnesium 1.4 L (1.6-2.3) mg/dL 12/20/21 12/20/21 Range/Units 10:15 11:20 WBC (3.8-10.6) k/uL RBC (4.30-5.90) m/uL MCV (80.0-100.0) fL MCH (25.0-35.0) pg Macrocytosis POC Glucose (mg/dL) 188 H 152 H (70-110) mg/dL Magnesium (1.6-2.3) mg/dL Microbiology - Last 24 Hours (Table) 12/18/21 17:41 Blood Culture - Preliminary Blood No Growth after 24 hours Assessment and Plan Plan: Acute COPD exacerbation Acute TIA versus CVA under investigation. CTA of the brain was negative. CAT scan of the brain was negative. Neurology consultation was initiated Acute seizures with postictal state, recovered and the patient is back to normal currently on Keppra Shortness of breath secondary to above. The patient's has acute on top of chronic dyspnea and his chronic shortness of breath related to COPD. Acute hypoxic respiratory failure secondary to above, currently on 2 L O2 nasal cannula Smoker Hypertension Plan Continue IV Keppra Seizure precautions No TPA per neurology and interventional neurology Blood pressure is under better control MRI of the brain to be done today EEG is to follow The patient on aspirin 325 mg by mouth daily Continue bronchodilators and steroids and antibiotics Smoking cessation counseling was done We'll need outpatient follow-up regarding COPD. We'll regulate and just maintenance insulin medications for COPD and obtain a pulmonary function test and monitor patient regular basis. Continue management of COPD and keep the patient ICU for now. Neurology consultation.
[2021-12-20 12:33] LABS: African American GFR (CKD) >90 (>60 ml/min/1.73 sqM); Anion Gap 15 mmol/L; Blood Urea Nitrogen 16 mg/dL (9-20); Calcium 8.4 mg/dL (8.4-10.2); Carbon Dioxide 19 mmol/L (22-30); Chloride 100 mmol/L (98-107); Glucose 232 mg/dL (74-99); Non-African American GFR(CKD) >90 (>60 ml/min/1.73 sqM); Potassium 3.7 mmol/L (3.5-5.1); Sodium 134 mmol/L (137-145)
--- NOTE | 2021-12-20 13:04 | MR ---
EXAMINATION TYPE: MR brain wo con DATE OF EXAM: 12/20/2021 12:56 PM COMPARISON: NONE HISTORY: stroke/tia FINDINGS: The ventricles, basal cisterns and sulci overlying the cerebral convexities are mildly enlarged. There is evidence of mild periventricular white matter ischemic demyelination. Remote deep white matter insults are also noted. Small area of remote insult posterior left MCA terr itory. Surrounding gliosis. Diffusion-weighted imaging demonstrates several punctate foci of increased signal within the bilatera l external capsules as well as the right vasquez radiata compatible with acute deep white matter insul ts. No evidence for cortical edema. There is no evidence for midline shift or mass effect. Acute intracranial hemorrhage or extra-axial collection is not evident. The paranasal sinuses and mastoid air cells are well-aerated. IMPRESSION: 1.Diffusion-weighted imaging demonstrates several punctate foci of increased signal within the bilate ral external capsules as well as the right vasquez radiata compatible with acute deep white matter ins ults.
--- NOTE | 2021-12-20 13:08 | P.PN ---
Subjective Progress Note Date: 12/20/21 Patient this morning was found to have facial droop and aphasia so stroke alert was activated. Patient had a CT head and CTA head and neck that was unremarkable. I discussed the case with the new potash flaker who said no need for TPA because the NIH score is low. Shortly after patient returned from comp uted tomography scan he had a witnessed seizure episode. I discussed with the nurse who said the patient did not have any signs of withdrawal. I later went to check on the patient. He was AAO 3 but was having difficulty finding words. At the time of my assessment patient did not have any focal deficits except for partial aphasia. Objective - Vital Signs Vital signs: Vital Signs Temp 98.2 F 12/20/21 11:16 Pulse 101 H 12/20/21 11:16 Resp 23 12/20/21 11:16 BP 168/100 12/20/21 11:16 Pulse Ox 97 12/20/21 10:33 FiO2 98.2 12/20/21 11:16 Intake & Output 12/19/21 12/20/21 12/20/21 18:59 06:59 18:59 Intake Total 360 133 Output Total 1300 250 Balance 360 -1300 -117 Intake: IV 15 Invasive Line 1 5 Invasive Line 2 10 Oral 360 118 Output: Urine 1300 250 Other: Voiding Method Urinal Urinal # Voids 2 - Exam General examination - Alert and Oriented 3 in NAD, appears chronically debilitated Heart - + S1S2 no murmurs Lungs -diminished breath sounds bilaterally Abdomen soft NT ND +ve BS Extremities - No edema 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90) m/uL MCV 111.9 H (80.0-100.0) fL MCH 35.6 H (25.0-35.0) pg Macrocytosis Marked A Sodium (137-145) mmol/L Carbon Dioxide (22-30) mmol/L Glucose (74-99) mg/dL POC Glucose (mg/dL) 235 H (70-110) mg/dL Magnesium 1.4 L (1.6-2.3) mg/dL 12/20/21 12/20/21 12/20/21 Range/Units 09:29 10:15 11:20 WBC (3.8-10.6) k/uL RBC (4.30-5.90) m/uL MCV (80.0-100.0) fL MCH (25.0-35.0) pg Macrocytosis Sodium 134 L (137-145) mmol/L Carbon Dioxide 19 L (22-30) mmol/L Glucose 232 H (74-99) mg/dL POC Glucose (mg/dL) 188 H 152 H (70-110) mg/dL Magnesium (1.6-2.3) mg/dL Microbiology - Last 24 Hours (Table) 12/18/21 17:41 Blood Culture - Preliminary Blood No Growth after 24 hours Assessment and Plan Assessment: Shortness of breath Likely due to COPD exacerbation and acute bronchitis Doubt patient has pneumonia since he has no fever or leukocytosis Resume duo nebs, steroids, Levaquin Pulmonology following Improving Stroke alert on 12/20/2021 for aphaisa and facial droop CT head negative for bleed. CTA head and neck negative for occlusion MRI pending Echocardiogram pending Check LDL and hemoglobin A1c I discussed the case with new potash flaker who said no TPA because of low NIH score Speech eval I stopped losartan and nifedipine to allow for permissive hypertension IV hydralazine for systolic blood pressure greater than 180 and diastolic blood pressure greater than 105 Patient started on aspirin and statin Neurology on board New onset witnessed seizure after stroke alert on 12/20/2021 For the past 2 days patient did not have any signs of alcohol withdrawal. I discussed with the nurse was doing care patient this morning and per nurse patient was not in withdrawal. Patient loaded with Keppra and started on 500 mg Keppra twice a day Hypertension urgency We'll allow permissive hypertension for now Generalized weakness Consult PT OT -> recommends prison facility Elevated ALP Patient denying any right upper quadrant pain We'll check a PSA Elevated d-dimer CTA chest negative for pulmonary embolism No clinical evidence of DVT Noncompliant with follow-up Patient counseled that he needs to follow-up with his doctors closely. History of alcohol use Patient counseled on alcohol cessation On admission his alcohol level is less than 10 and patient has no withdrawal symptoms We'll continue to monitor closely for any withdrawal symptoms Tobacco abuse Nicotine patch CODE STATUS:full code DVT prophylaxis: Lovenox Anticipated discharge place: home versus prison facility
[2021-12-20] MEDS: MAGNESIUM SULFATE-D5W PMX 1 GM in DEXTROSE/WATER 1 100ML.BAG IVPB SCH ×3 (13:58→16:33)
[2021-12-20] MEDS ORDERED: Potassium Replacement Protocol 1 EACH MISC MISCELLANE PRN (14:50)
[2021-12-20] MEDS ORDERED: POTASSIUM CHLORIDE ER 20 MEQ TAB.ER PO SCH (15:00)
--- NOTE | 2021-12-20 16:58 | CA ---
Transthoracic Echo Report Name: Lizandro Soria Age: 61 Gender: M : 1960 Exam Date: 12/20/2021 13:14 Exam Location: [facility] Ht (in): 67 Wt (lb): 150 Ordering Physician: Mayra Long MD Attending/Referring Phys: Hospital Receiving Clerk Shobha Hoffman RDCS Procedure CPT: Indications: stroke Cardiac Hx: Technical Quality: Good Contrast 1: Total Dose (mL): Contrast 2: Total Dose (mL): MEASUREMENTS (Male / Female) Normal Values 2D ECHO LV Diastolic Diameter PLAX 4.2 cm 4.2 - 5.9 / 3.9 - 5.3 cm LV Systolic Diameter PLAX 2.5 cm IVS Diastolic Thickness 1.4 cm 0.6 - 1.0 / 0.6 - 0.9 cm LVPW Diastolic Thickness 1.3 cm 0.6 - 1.0 / 0.6 - 0.9 cm LV Relative Wall Thickness 0.7 RV Internal Dim ED PLAX 2.8 cm LVOT Diameter 2.3 cm LA Systolic Diameter LX 3.2 cm 3.0 - 4.0 / 2.7 - 3.8 cm M-MODE Aortic Root Diameter MM 4.0 cm MV E Point Septal Separation 0.7 cm AV Cusp Separation MM 1.8 cm DOPPLER AV Peak Velocity 238.8 cm/s AV Peak Gradient 22.8 mmHg AV Mean Velocity 138.4 cm/s AV Mean Gradient 9.9 mmHg AV Velocity Time Integral 44.7 cm MV Area PHT 3.2 cm??? Mitral E Point Velocity 81.4 cm/s Mitral A Point Velocity 116.4 cm/s Mitral E to A Ratio 0.7 MV Deceleration Time 240.2 ms MV E' Velocity 7.2 cm/s Mitral E to MV E' Ratio 11.3 TR Peak Velocity 273.3 cm/s TR Peak Gradient 29.9 mmHg Right Ventricular Systolic Press 34.9 mmHg FINDINGS Left Ventricle Left ventricular ejection fraction is estimated at 55-60 %. Moderately increased septal wall thickness. Left ventricular cavity size normal. Moderate left ventricular hypertrophy Right Ventricle Normal right ventricular size and function. Normal pulmonary pressure Right Atrium Normal right atrial size. Left Atrium Normal left atrial size. No evidence for an atrial septal defect. Negative saline bubble study Mitral Valve Structurally normal mitral valve. No mitral stenosis, or prolapse. Mild mitral regurgitation Aortic Valve Trileaflet aortic valve. Aortic sclerosis. Mild aortic stenosis with a peak gradient of 23 mmHg and a mean gradient of 10 mmHg. Tricuspid Valve Mild tricuspid regurgitation.structurally normal tricuspid valve. Pulmonic Valve Pulmonic valve not well visualized. Pericardium Normal pericardium. No pericardial effusion. Aorta Moderate aortic dilatation at the level of the sinotubular junction. CONCLUSIONS 1. Normal left ventricle size and systolic function with moderate ventricular hypertrophy 2. No evidence of shunting by bubble study 3. Mild mitral and tricuspid regurgitation Previewed by: Dr. Socorro Ewing MD (Electronically Signed) Final Date: 20 December 2021 16:58
[2021-12-20] MEDS: LEVOFLOXACIN 750 MG TAB PO SCH (17:18)
[2021-12-20 17:25] LABS: Glucose,Whole Blood 152 mg/dL (70-110)
--- NOTE | 2021-12-20 17:49 | P.CNNES ---
History of Present Illness Consult date: 12/20/21 Requesting physician: Lane David Reason for Consult: Code stroke History of Present Illness: This is a telemedicine neurology consultation performed today on 12/20/2021. Patient is a 61-year-old male came to the hospital by ambulance on 12/18/2021 for generalized weakness. He has not seen a doctor for 40 years. This has been ongoing for the past year but has progressively been getting worse in the last couple of days. Patient had mentioned in the ED, that he was never diagnosed with any medical conditions and takes no medications. Patient denied any headache, neck pain, chest, back and abdominal pain. No nausea or vomiting. His vitals were blood pressure 235/144, pulse rate 95, respiration 12, saturation 95%. Patient was admitted for shortness of breath likely due to COPD exacerbation, acute bronchitis, hypertensive urgency, and generalized weakness and elevated d-dimer. Patient had a stroke code activated at 8:30 AM this morning. Per nurse report, who was present at the time of this interview states that at 8 AM patient was alert and oriented and appropriate. He was complaining of having some "tongue tingling and weird feeling". His vitals were stable at that time with blood pressure systolic 150s. Shortly after she was passing by his room, she saw him aphasic, not able to talk, garbled speech with right facial droop. Strength stroke code activated at 8:40 AM. Patient's NIH stroke scale was 2. Patient was sent for CT and CTA. Patient's speech improved but right facial droop rem ained. The nurse spoke to Dr. Black, who recommended no TPA. He recommended neuro checks, aspirin and Lipitor. At around 10:10 AM the nurse went in the room to find patient having a seizure, which lasted for 45 seconds. Patient was post ictal and slowly responsiveness returned to baseline. Patient is edentulous, therefore did not bite his tongue. He didn't lose control of urine. When I saw the patient shortly after at 10:30 AM, patient was very groggy, post ictal. He slowly improved during that time of the encounter. Patient denies any history of seizure. Patient at present denies any headache, no chest pain, no abdominal pain. Patient states that he lives with his brother. He has no other family members. CT head showed age-related atrophic and chronic small vessel ischemic changes without acute intracranial process. On my review there is evidence of old encephalomalacia involving the left posterior parietal occipital junction from previous stroke. The left TERRENCE at the origin appears slightly dense. CTA report is pending. EKG shows sinus rhythm. Patient's blood test shows normal CBC with elevated MCV 110. PT/PTT is normal. Chem-20 is normal. Troponin negative. UA negative. Blood alcohol level negative. Coronal virus PCR negative. Patient currently on aspirin 81 mg, Lipitor 40 mg, Lovenox 40 mg. CTA of the head revealed no significant diameter reduction to account for the patient's symptoms. CTA of the neck showed atherosclerotic changes. No obvious vascular occlusion. I personally reviewed CTA, agreed with findings. Patient states that he has smoked 1-1/2 pack per day since 1985. Patient states that he drinks couple shots of peppermint Thomas short sometimes, not every night, but several nights a week. He smokes pot. Review of Systems ROS unobtainable: due to mental status Constitutional: Denies chills, Denies fever Eyes: denies blurred vision, denies pain Ears, nose, mouth and throat: Denies headache, Denies sore throat Cardiovascular: Denies chest pain, Denies shortness of breath Respiratory: Denies cough Gastrointestinal: Denies abdominal pain, Denies diarrhea, Denies nausea, Denies vomiting Integumentary: Denies pruritus, Denies rash Neurological: Reports as per HPI Psychiatric: Denies anxiety, Denies depression Endocrine: Denies fatigue, Denies weight change Hematologic/Lymphatic: Denies easy bruising Allergic/Immunologic: Denies persistent infections Past Medical History Past Medical History: No Reported History, COPD History of Any Multi-Drug Resistant Organisms: None Reported Past Surgical History: No Surgical Hx Reported Past Anesthesia/Blood Transfusion Reactions: No Reported Reaction Past Psychological History: No Psychological Hx Reported Smoking Status: Current every day smoker Past Alcohol Use History: Rare Past Drug Use History: Marijuana Medications and Allergies Home Medications Medication Instructions Recorded Confirmed Type EPINEPHrine [Primatene Mist] 2 puff INHALATION RT-HS 12/18/21 12/18/21 History Allergies Allergy/AdvReac Type Severity Reaction Status Date / Time No Known Allergies Allergy Verified 12/18/21 14:19 Physical Examination - Vital Signs Vital Signs: Vital Signs Temp Pulse Pulse Resp BP BP Pulse Ox 12/20/21 08:44 188/99 12/20/21 08:43 97 12/20/21 08:40 192/101 12/20/21 08:27 97.8 F 102 H 21 156/82 95 12/20/21 04:00 97.6 F 91 16 137/79 98 12/20/21 02:00 101 H 20 12/20/21 00:00 97.6 F 101 H 20 151/89 97 12/19/21 20:31 100 12/19/21 20:19 99 99 12/19/21 20:00 98.0 F 104 H 18 143/79 97 12/19/21 16:06 104 H 12/19/21 16:00 97.9 F 107 H 20 129/73 96 12/19/21 15:52 108 H 12/19/21 14:00 87 17 12/19/21 12:00 97.7 F 87 143/83 96 12/19/21 11:44 104 H 12/19/21 11:32 99 12/19/21 11:18 101 H 17 144/84 97 Intake and Output 12/19/21 12/20/21 12/20/21 22:59 06:59 14:59 Intake Total 360 118 Output Total 300 1000 250 Balance 60 -1000 -132 Intake: Oral 360 118 Output: Urine 300 1000 250 Other: Voiding Method Urinal # Voids 2 Patient is a late middle aged male, who appears older than his stated age. Patient initially seen was postictal, but his mentation improved and he started answering questions appropriately. At first he was almost mute, but slowly improved during the time of the encounter. Patient knows his name, could not tell the building he is in, city. He was able to name "pen". Speech and language functions are normal. Patient can name and repeat very well. No aphasia or dysarthria. Attention, concentration and fund of knowledge is slightly limited. On cranial nerve examination, pupils are equal, round and reacting to light, visual thakkar could not be tested reliably because of his postictal status. Extraocular muscles are intact with no nystagmus. Face is symmetric, tongue protrudes to the midline. Palatal elevation and sensation normal, hearing appears slightly decreased and shoulder shrug normal, facial sensation cannot be assessed. On muscle strength testing, there is are right pronator drift and the arm does not clearly hit the bed. He has no droop of the legs. His strength was equal in the thread inspector and biceps, but with overall decreased effort. His deltoid strength was fairly normal bilaterally. Ankle dorsiflexion also slightly weak with decreased effort. Deep tendon reflexes are symmetric (right/left) biceps 2/2, knee 1/1, knee 1/1 and plantar is up on the right and down left. Sensory to touch is equal with no neglect on double simultaneous stimulation. Cerebellar function showed no ataxia for [id number] testing. Tone and bulk of muscles normal. Gait deferred.. On general examination, there is no carotid bruit or murmur, S1-S2 audible. Chest is clear on consultation. Abdomen is soft nontender. No organomegaly, bowel sounds present. No edema. Results - Laboratory Findings CBC and BMP: 12/20/21 09:29 12/20/21 09:29 Abnormal Lab Findings: Abnormal Labs 12/18/21 12/18/21 12/18/21 12:24 12:24 12:24 MCV 110.1 H MCH 36.8 H Macrocytosis Marked A D-Dimer 1.22 H BUN 22 H Glucose 114 H POC Glucose (mg/dL) Alkaline Phosphatase 168 H Urine Protein 12/18/21 12/18/21 12/19/21 12:24 20:36 06:01 MCV MCH Macrocytosis D-Dimer BUN Glucose POC Glucose (mg/dL) 178 H 133 H Alkaline Phosphatase Urine Protein Trace H 12/19/21 12/19/21 12/20/21 17:06 20:12 05:59 MCV MCH Macrocytosis D-Dimer BUN Glucose POC Glucose (mg/dL) 175 H 192 H 143 H Alkaline Phosphatase Urine Protein 12/20/21 08:43 MCV MCH Macrocytosis D-Dimer BUN Glucose POC Glucose (mg/dL) 235 H Alkaline Phosphatase Urine Protein Assessment and Plan Assessment: * Probable acute ischemic stroke. Patient was not considered a candidate for TPA because of low INH stroke scale of 2. At present examination is limited, but only significant for right pronator drift. The rest of the examination was nonfocal. * New onset seizure, unclear etiology. * Hypertension and elevated blood sugar, possible new onset diabetes * Hypertension, came with hypertensive urgency. * Macrocytosis * Tobacco use * Marijuana use Plan: * CTA of head and neck revealed no significant stenosis or aneurysm. * MRI of the brain evaluate for an acute stroke * Aspirin 324 mg stat and then 325 mg daily. * 2-D echo with bubble study to rule out PFO * Fasting a.m. lipid panel, hemoglobin A1c * EEG evaluate for epileptiform activity. * Patient empirically started on Keppra 1000 mg stat and then 500 mg twice a day. * Close neuro checks. * DVT prophylaxis: Patient started on Lovenox 40 mg daily. * Patient being transferred to ICU. * Neurology will follow. Thank you for the consult. Addendum: * MRI of the brain revealed diffusion weighted imaging demonstrates several punctate foci of increased signal within the bilateral external capsules, as well as the right vasquez radiata compatible with acute deep white matter insults. I personally reviewed MRI, agree with the findings. * 2-D echo revealed normal left-ventricular size and systolic function with moderate-to clear hypertrophy. No evidence of shunting by bubble study. Mild mitral and tricuspid regurgitation. EF is 55-60% left atrial size is normal. * We will place patient on DAP with Plavix 75 mg daily, and aspirin. * Permissive hypertension for 24-48 hours. Treat blood pressure > 180/110. Time with Patient: Greater than 30 (Complexity very high.)
[2021-12-20] MEDS: levETIRAcetam 500 MG TAB PO SCH (20:14)
[2021-12-20 20:39] LABS: Glucose,Whole Blood 181 mg/dL (70-110)
[2021-12-21] MEDS: methylPREDNISolone SOD SUCCI 125 MG/2 ML VIAL IV SCH ×2 (00:57→06:54)
[2021-12-21 04:56] LABS: Magnesium 2.5 mg/dL (1.6-2.3)
[2021-12-21 07:43] LABS: HCT 43.5 % (39.0-53.0); HGB 14.2 gm/dL (13.0-17.5); MCH 35.5 pg (25.0-35.0); MCHC 32.7 g/dL (31.0-37.0); MCV 108.8 fL (80.0-100.0); Macrocytosis Marked; Mean Platelet Volume 8.6; Platelet Count 251 k/uL (150-450); RBC 3.99 m/uL (4.30-5.90); RDW 14.9 % (11.5-15.5); WBC 13.4 k/uL (3.8-10.6)
[2021-12-21 07:48] LABS: African American GFR (CKD) >90 (>60 ml/min/1.73 sqM); Anion Gap 11 mmol/L; Blood Urea Nitrogen 19 mg/dL (9-20); Calcium 8.3 mg/dL (8.4-10.2); Carbon Dioxide 22 mmol/L (22-30); Chloride 103 mmol/L (98-107); Glucose 128 mg/dL (74-99); Non-African American GFR(CKD) >90 (>60 ml/min/1.73 sqM); Potassium 4.3 mmol/L (3.5-5.1); Sodium 136 mmol/L (137-145)
[2021-12-21] MEDS: ATORVASTATIN 40 MG TAB PO SCH (08:11)
[2021-12-21] MEDS: NICOTINE 21MG/24HR PATCH TRANSDERM SCH (08:11)
[2021-12-21] MEDS: levETIRAcetam 500 MG TAB PO SCH ×2 (08:11→19:57)
[2021-12-21] MEDS: IPRATROPIUM-ALBUTEROL 3 ML NEB INHALATION SCH ×4 (08:19→20:13)
[2021-12-21] MEDS ORDERED: ASPIRIN 325 MG TAB PO SCH (09:00)
--- NOTE | 2021-12-21 09:23 | P.PN ---
Subjective Progress Note Date: 12/21/21 This is a 59-year-old male patient, came into the hospital because of worsening shortness of breath. He was told by family members to presented to the hospital as the patient was having significant amount of difficulties breathing. Is a chronic smoker. He has not seen a clay thrower in the past. The patient was smoking many ask of cigarettes a day needs trying to quit smoking for now. He continues to smoke 1 pack of cigarettes a day. No maintenance inhalers. No Oxygen therapy. No previous hospitalizations for any pulmonary related complications. The patient was using Primatene Mist on outpatient basis. The patient presented to the hospital because of increased dyspnea. Cough and swapna estion and wheezing was also present. No hemoptysis. No pleurisy. Chest x-ray was done. CT angiogram was done. No evidence of any pulmonary embolism. Some limited scattered opacities bilaterally involving the lingula in the periphery of the lower lobes that was attributed to retained secretions. The white cell count was at 9.2 with a hemoglobin of 16.4 and a platelet count of 298. BUN is at 22 with a creatinine 0.7. Sodium is at 139. The patient has a negative UA. Alcohol level was negative. COVID 19 testing was negative. The patient states that he has taken vaccination 2 for COVID 19. He is currently on a combination of bronchodilators and steroids and is also on empiric antibiotic coverage with Levaquin. IV fluids of normal saline at the rate of 130 mL an hour. Most of a ny cardiac disease. On 12/20/2021, the patient got transferred to the intensive care unit. I was a pproached by the hospitalist stating that the patient had some neurologic events. Earlier this morning, the patient some numbness in his tongue and following that he had a right facial droop and right-sided weakness and he became aphasic. Based on that, a code stroke was initiated. The patient un derwent a CAT scan of the brain that showed age-related atrophy and chronic small vessel ischemic changes without any acute abnormalities. Following that, the patient was given a CT angiogram that was done this morning showed atherosclerotic changes without any obvious vascular occlusion. No significant reduction or changes in the common carotid on the right than the left. The vertebrobasilar system was also patent. After the patient came back from CAT scan, he had a brief seizure episodes when post ictal and subsequently regained his consciousness. The stroke team was consulted and the patient was not found to be a good candidate for TPA. His initial NIH score was 2 and later on dropp ed down to 1. He was hypertensive during this process and his current blood pressure is under better control with the most recent systolic blood pressure being 158 with a diastolic of 94. His blood pressure peaked at 206/97. He is currently on 2 L of oxygen by nasal cannula with pulse ox of 97%. His communicating. No focal neurological deficits. Adequate motor function on the right side. Adequate speech. Pupils are equal and reactive to light. Neurology has been informed. Patient was given Keppra. On 12/21/2021, the patient is awake and alert and following commands and answering questions appropriately. No neurologic deficits his morning. MRI of the brain was done yesterday and the MRI of the brain showed some increased signal within the bilateral external capsule as well as the right coronary radiata compatible with acute deep white matter insults. The patient has no headache. The patient is normotensive. No seizure activity has been noted. The patient remains on Keppra 500 mg every 12 hours. Brester status is also stable. Less short of breath. Limited congestion. No significant sputum production. No hemoptysis or pleurisy. The patient remains on DuoNeb nebulized treatments around the clock and IV Solu-Medrol. The patient is on Lovenox for DVT prophylaxis. The patient is also on empiric antibiotic coverage with Levaquin. No signs of any delirium tremens and the patient is taking nicotine patch. Objective - Vital Signs Vital signs: Vital Signs Temp 97.6 F 12/21/21 08:00 Pulse 81 12/21/21 08:30 Resp 20 12/21/21 08:00 BP 144/93 12/21/21 08:00 Pulse Ox 95 12/21/21 08:00 FiO2 98.2 12/20/21 11:16 Intake & Output 12/20/21 12/21/21 12/21/21 18:59 06:59 18:59 Intake Total 603 470 10 Output Total 825 700 300 Balance -222 -230 -290 Weight 70.5 kg 70.7 kg Intake: IV 485 120 10 Invasive Line 1 5 Invasive Line 2 10 Magnesium Sulfate-D5w Pmx 300 1 gm In Dextrose/Water 1 100ml.bag @ 100 mls/hr IVPB Q1H [facility] Rx#: [id number] Sodium Chloride 0.9% 1, 70 120 10 000 ml @ 130 mls/hr IV . Q7H42M [facility] Rx#:[id number] levETIRAcetam IV 1,000 mg 100 In Saline 1 100ml.bag @ 400 mls/hr IVPB ONCE [facility] Rx#:[id number] Oral 118 350 Output: Urine 825 700 300 Other: Voiding Method Urinal Urinal # Voids 1 - Exam The patient appeared well nourished and normally developed. Vital signs as documented. Head exam is unremarkable. No scleral icterus or corneal arcus noted. Neck is without jugular venous distension, thyromegaly, or carotid bruits. Carotid upstrokes are brisk bilaterally. Lungs sounds are diminished and the patient is diffuse expiratory wheezes throughout the lung his bilaterally and the patient is prolongation of exhalation phase of breathing.. Cardiac exam reveals the PMI to be normally sized and situated. Rhythm is regular. First and second heart sounds normal. No murmurs, rubs or gallops. Abdominal exam reveals normal bowel sounds, no masses, no organomegaly and no aortic enlargement. Extremities are nonedematous and both femoral and pedal pulses are nor mal.Examination of the skin revealed no evidence of significant rashes, suspicious appearing nevi or other concerning lesions.Neurologically, the patient is awake and alert and the patient does not have any focal neurological deficit. Cranial nerves are essentially intact. - Labs CBC & Chem 7: 12/21/21 03:44 12/21/21 03:44 Labs: Abnormal Lab Results - Last 24 Hours (Table) 12/20/21 12/20/21 12/20/21 Range/Units 09:29 09:29 09:29 WBC 16.2 H (3.8-10.6) k/uL RBC 4.16 L (4.30-5.90) m/uL MCV 111.9 H (80.0-100.0) fL MCH 35.6 H (25.0-35.0) pg Neutrophils # 15.2 H (1.3-7.7) k/uL Lymphocytes # 0.5 L (1.0-4.8) k/uL Macrocytosis Marked A Sodium 134 L (137-145) mmol/L Carbon Dioxide 19 L (22-30) mmol/L Glucose 232 H (74-99) mg/dL POC Glucose (mg/dL) (70-110) mg/dL Calcium (8.4-10.2) mg/dL Magnesium 1.4 L (1.6-2.3) mg/dL Folate (4.40-31.00) ng/mL 12/20/21 12/20/21 12/20/21 Range/Units 09:29 10:15 11:20 WBC (3.8-10.6) k/uL RBC (4.30-5.90) m/uL MCV (80.0-100.0) fL MCH (25.0-35.0) pg Neutrophils # (1.3-7.7) k/uL Lymphocytes # (1.0-4.8) k/uL Macrocytosis Sodium (137-145) mmol/L Carbon Dioxide (22-30) mmol/L Glucose (74-99) mg/dL POC Glucose (mg/dL) 188 H 152 H (70-110) mg/dL Calcium (8.4-10.2) mg/dL Magnesium (1.6-2.3) mg/dL Folate <2.00 L (4.40-31.00) ng/mL 12/20/21 12/20/21 12/21/21 Range/Units 17:23 20:37 03:44 WBC (3.8-10.6) k/uL RBC (4.30-5.90) m/uL MCV (80.0-100.0) fL MCH (25.0-35.0) pg Neutrophils # (1.3-7.7) k/uL Lymphocytes # (1.0-4.8) k/uL Macrocytosis Sodium (137-145) mmol/L Carbon Dioxide (22-30) mmol/L Glucose (74-99) mg/dL POC Glucose (mg/dL) 152 H 181 H (70-110) mg/dL Calcium (8.4-10.2) mg/dL Magnesium 2.5 H (1.6-2.3) mg/dL Folate (4.40-31.00) ng/mL 12/21/21 12/21/21 Range/Units 03:44 03:44 WBC 13.4 H (3.8-10.6) k/uL RBC 3.99 L (4.30-5.90) m/uL MCV 108.8 H (80.0-100.0) fL MCH 35.5 H (25.0-35.0) pg Neutrophils # (1.3-7.7) k/uL Lymphocytes # (1.0-4.8) k/uL Macrocytosis Marked A Sodium 136 L (137-145) mmol/L Carbon Dioxide (22-30) mmol/L Glucose 128 H (74-99) mg/dL POC Glucose (mg/dL) (70-110) mg/dL Calcium 8.3 L (8.4-10.2) mg/dL Magnesium (1.6-2.3) mg/dL Folate (4.40-31.00) ng/mL Microbiology - Last 24 Hours (Table) 12/18/21 17:41 Blood Culture - Preliminary Blood No Growth after 48 hours Assessment and Plan Plan: Acute COPD exacerbation, recovered Acute TIA versus CVA under investigation. CTA of the brain was negative. CAT scan of the brain was negative. Neurology consultation was initiated, no further seizure activity. Neurologic exam is within normal and the patient's MRI of the brain showed some deep white matter insult involving the vasquez radiata/external capsule. Acute seizures with postictal state, recovered and the patient is back to normal currently on Keppra Shortness of breath secondary to above. The patient's has acute on top of chronic dyspnea and his chronic shortness of breath related to COPD. Acute hypoxic respiratory failure secondary to above, currently on 2 L O2 nasal cannula Smoker Hypertension Plan Continue IV Keppra Seizure precautions No TPA per neurology and interventional neurology Blood pressure is under better control The patient on aspirin 325 mg by mouth daily Continue bronchodilators and steroids and antibiotics Smoking cessation counseling was done\ Discontinue the IV Solu-Medrol and put the patient on prednisone burst taper starting with 40 mg by mouth daily. Downgrade this patient to medical surgical floor Neuro workup is completed and the patient will need a neuro follow-up Transfer out of the ICU today.
[2021-12-21] MEDS: ENOXAPARIN 40 MG/0.4 ML SYRINGE SQ SCH (09:25)
--- NOTE | 2021-12-21 10:22 | P.PN ---
Subjective Progress Note Date: 12/21/21 Patient denies any focal deficits. Patient did not appear to have any aphasia this morning. He is answering all questions appropriately. Patient also had no facial droop. Patient states that he had a good sleep last night. Objective - Vital Signs Vital signs: Vital Signs Temp 97.6 F 12/21/21 08:00 Pulse 86 12/21/21 09:00 Resp 22 12/21/21 09:00 BP 149/89 12/21/21 09:00 Pulse Ox 91 L 12/21/21 09:00 FiO2 98.2 12/20/21 11:16 Intake & Output 12/20/21 12/21/21 12/21/21 18:59 06:59 18:59 Intake Total 603 470 10 Output Total 825 700 555 Balance -222 -230 -545 Weight 70.5 kg 70.7 kg Intake: IV 485 120 10 Invasive Line 1 5 Invasive Line 2 10 Magnesium Sulfate-D5w Pmx 300 1 gm In Dextrose/Water 1 100ml.bag @ 100 mls/hr IVPB Q1H [facility] Rx#: [id number] Sodium Chloride 0.9% 1, 70 120 10 000 ml @ 130 mls/hr IV . Q7H42M [facility] Rx#:[id number] levETIRAcetam IV 1,000 mg 100 In Saline 1 100ml.bag @ 400 mls/hr IVPB ONCE [facility] Rx#:[id number] Oral 118 350 Output: Urine 825 700 555 Other: Voiding Method Urinal Urinal # Voids 1 - Exam General examination - Alert and Oriented 3 in NAD, appears chronically d ebilitated Heart - + S1S2 no murmurs Lungs -diminished breath sounds bilaterally Abdomen soft NT ND +ve BS Extremities - No edema INTERIOR DESIGNER - Moving all 4 extremities spontaneously, no focal deficits Psych - Calm and cooperative - Labs CBC & Chem 7: 12/21/21 03:44 12/21/21 03:44 Labs: Abnormal Lab Results - Last 24 Hours (Table) 12/20/21 12/20/21 12/20/21 Range/Units 09:29 09: 09:29 WBC 16.2 H (3.8-10.6) k/uL RBC 4.16 L (4.30-5.90) m/uL MCV 111.9 H (80.0-100.0) fL MCH 35.6 H (25.0-35.0) pg Neutrophils # 15.2 H (1.3-7.7) k/uL Lymphocytes # 0.5 L (1.0-4.8) k/uL Macrocytosis Marked A Sodium 134 L (137-145) mmol/L Carbon Dioxide 19 L (22-30) mmol/L Glucose 232 H (74-99) mg/dL POC Glucose (mg/dL) (70-110) mg/dL Calcium (8.4-10.2) mg/dL Magnesium 1.4 L (1.6-2.3) mg/dL Folate (4.40-31.00) ng/mL 12/20/21 12/20/21 12/20/21 Range/Units 09:29 10:15 11:20 WBC (3.8-10.6) k/uL RBC (4.30-5.90) m/uL MCV (80.0-100.0) fL MCH (25.0-35.0) pg Neutrophils # (1.3-7.7) k/uL Lymphocytes # (1.0-4.8) k/uL Macrocytosis Sodium (137-145) mmol/L Carbon Dioxide (22-30) mmol/L Glucose (74-99) mg/dL POC Glucose (mg/dL) 188 H 152 H (70-110) mg/dL Calcium (8.4-10.2) mg/dL Magnesium (1.6-2.3) mg/dL Folate <2.00 L (4.40-31.00) ng/mL 12/20/21 12/20/21 12/21/21 Range/Units 17:23 20:37 03:44 WBC (3.8-10.6) k/uL RBC (4.30-5.90) m/uL MCV (80.0-100.0) fL MCH (25.0-35.0) pg Neutrophils # (1.3-7.7) k/uL Lymphocytes # (1.0-4.8) k/uL Macrocytosis Sodium (137-145) mmol/L Carbon Dioxide (22-30) mmol/L Glucose (74-99) mg/dL POC Glucose (mg/dL) 152 H 181 H (70-110) mg/dL Calcium (8.4-10.2) mg/dL Magnesium 2.5 H (1.6-2.3) mg/dL Folate (4.40-31.00) ng/mL 12/21/21 12/21/21 Range/Units 03:44 03:44 WBC 13.4 H (3.8-10.6) k/uL RBC 3.99 L (4.30-5.90) m/uL MCV 108.8 H (80.0-100.0) fL MCH 35.5 H (25.0-35.0) pg Neutrophils # (1.3-7.7) k/uL Lymphocytes # (1.0-4.8) k/uL Macrocytosis Marked A Sodium 136 L (137-145) mmol/L Carbon Dioxide (22-30) mmol/L Glucose 128 H (74-99) mg/dL POC Glucose (mg/dL) (70-110) mg/dL Calcium 8.3 L (8.4-10.2) mg/dL Magnesium (1.6-2.3) mg/dL Folate (4.40-31.00) ng/mL Microbiology - Last 24 Hours (Table) 12/18/21 17:41 Blood Culture - Preliminary Blood No Growth after 48 hours Assessment and Plan Assessment: Shortness of breath Likely due to COPD exacerbation and acute bronchitis Doubt patient has pneumonia since he has no fever or leukocytosis Resume duo nebs, steroids, Levaquin Patient transition to oral steroids Pulmonology following Improving Stroke alert on 12/20/2021 for aphaisa and facial droop Acute CVA confirmed on MRI: Symptoms have now resolved CT head negative for bleed. CTA head and neck negative for occlusion MRI confirms acute stroke and shows acute deep white matter insults Echocardiogram shows normal LV and negative bubble study Check LDL and hemoglobin A1c I discussed the case with the neuro account services analyst who said no TPA because of low NIH score Speech eval pending I stopped losartan and nifedipine to allow for permissive hypertension. Patient's blood pressure this morning is controlled without any BP meds IV hydralazine for systolic blood pressure greater than 180 and diastolic blood pressure greater than 105. Allow permissive hypertension for another 24 hours Patient started on aspirin and statin and Plavix Neurology on board New onset witnessed seizure after stroke alert on 12/20/2021 There is questionable history patient was a heavy drinker. During hospitalization patient did not have any signs of alcohol withdrawal so doubt seizure related to alcohol. I suspect it is due acute stroke Patient loaded with Keppra and started on 500 mg Keppra twice a day Hypertension urgency See management above Generalized weakness Consult PT OT -> recommends [facility] Elevated ALP Patient denying any right upper quadrant pain We'll check a PSA Elevated d-dimer CTA chest negative for pulmonary embolism No clinical evidence of DVT Noncompliant with follow-up Patient counseled that he needs to follow-up with his doctors closely. History of alcohol use Patient states that he only drinks 2 shots at nighttime to help him sleep Patient counseled on alcohol cessation Patient has had no signs of alcohol withdrawal during his hospitalization. Tobacco abuse Nicotine patch CODE STATUS:full code DVT prophylaxis: Lovenox Anticipated discharge place: [facility] Patient will be stable for discharge in the next 24 hours if BP stable.
[2021-12-21] MEDS: CLOPIDOGREL 75 MG TAB PO SCH (10:30)
[2021-12-21 11:19] LABS: LDL Cholesterol,Calculated 138.6 mg/dL (0.0-131.0)
[2021-12-21 11:26] LABS: Glucose,Whole Blood 157 mg/dL (70-110)
--- NOTE | 2021-12-21 16:11 | P.PN ---
Subjective Progress Note Date: 12/21/21 This is a telemedicine neurology follow performed today on 12/21/2021. Patient was seen for a follow-up. Patient is sitting in a recliner. He is very comfortable. Patient's mentation has much improved Patient denies any headache, no dizziness, no numbness or tingling. He does have chronic numbness of his feet, which is not new. No new weakness of extremities. No slurred speech, no language problem. Denies any visual issues. Patient states that he is right- hand dominant. Patient says that he used to take aspirin very rarely, not on a regular basis only when he would get headache. Regarding alcohol, patient states that he does not drink alcohol on a regular basis, about 3 nights a week, he would drink one or 2 shots of peppermint Thomas. He states "I'm not an alcoholic I". Patient admits to smoking 1-1-1/2 pack per day since 1985. He has been trying to cut back because of cough and phlegm. Objective - Vital Signs Vital signs: Vital Signs Temp 97.6 F 12/21/21 08:00 Pulse 86 12/21/21 09:00 Resp 22 12/21/21 09:00 BP 149/89 12/21/21 09:00 Pulse Ox 91 L 12/21/21 09:00 FiO2 98.2 12/20/21 11:16 Intake & Output 12/20/21 12/21/21 12/21/21 18:59 06:59 18:59 Intake Total 603 470 10 Output Total 825 700 555 Balance -222 -230 -545 Weight 70.5 kg 70.7 kg Intake: IV 485 120 10 Invasive Line 1 5 Invasive Line 2 10 Magnesium Sulfate-D5w Pmx 300 1 gm In Dextrose/Water 1 100ml.bag @ 100 mls/hr IVPB Q1H [facility] Rx#: [id number] Sodium Chloride 0.9% 1, 70 120 10 000 ml @ 130 mls/hr IV . Q7H42M [facility] Rx#:[id number] levETIRAcetam IV 1,000 mg 100 In Saline 1 100ml.bag @ 400 mls/hr IVPB ONCE [facility] Rx#:[id number] Oral 118 350 Output: Urine 825 700 555 Other: Voiding Method Urinal Urinal # Voids 1 - Exam Patient is alert and awake fully oriented. His mentation is perfectly normal. Speech and language functions are normal. No paraphasic errors. His pupils are equal, round and reacting to light, visual thakkar appears full, face is symmetric and tongue protrudes to the midline. On muscle strength wagner ting, he has right pronation, but no drift. The strength appears normal, except right hip flexion which is 5-. There is no ataxia for [id number] testing. Sensory is equal with no neglect. - Labs CBC & Chem 7: 12/21/21 03:44 12/21/21 03:44 Labs: Abnormal Lab Results - Last 24 Hours (Table) 12/20/21 12/20/21 12/20/21 Range/Units 09:29 09: 09:29 WBC 16.2 H (3.8-10.6) k/uL RBC 4.16 L (4.30-5.90) m/uL MCV 111.9 H (80.0-100.0) fL MCH 35.6 H (25.0-35.0) pg Neutrophils # 15.2 H (1.3-7.7) k/uL Lymphocytes # 0.5 L (1.0-4.8) k/uL Macrocytosis Marked A Sodium 134 L (137-145) mmol/L Carbon Dioxide 19 L (22-30) mmol/L Glucose 232 H (74-99) mg/dL POC Glucose (mg/dL) (70-110) mg/dL Calcium (8.4-10.2) mg/dL Magnesium 1.4 L (1.6-2.3) mg/dL Folate (4.40-31.00) ng/mL 12/20/21 12/20/21 12/20/21 Range/Units 09:29 11:20 17:23 WBC (3.8-10.6) k/uL RBC (4.30-5.90) m/uL MCV (80.0-100.0) fL MCH (25.0-35.0) pg Neutrophils # (1.3-7.7) k/uL Lymphocytes # (1.0-4.8) k/uL Macrocytosis Sodium (137-145) mmol/L Carbon Dioxide (22-30) mmol/L Glucose (74-99) mg/dL POC Glucose (mg/dL) 152 H 152 H (70-110) mg/dL Calcium (8.4-10.2) mg/dL Magnesium (1.6-2.3) mg/dL Folate <2.00 L (4.40-31.00) ng/mL 12/20/21 12/21/21 12/21/21 Range/Units 20:37 03:44 03:44 WBC 13.4 H (3.8-10.6) k/uL RBC 3.99 L (4.30-5.90) m/uL MCV 108.8 H (80.0-100.0) fL MCH 35.5 H (25.0-35.0) pg Neutrophils # (1.3-7.7) k/uL Lymphocytes # (1.0-4.8) k/uL Macrocytosis Marked A Sodium (137-145) mmol/L Carbon Dioxide (22-30) mmol/L Glucose (74-99) mg/dL POC Glucose (mg/dL) 181 H (70-110) mg/dL Calcium (8.4-10.2) mg/dL Magnesium 2.5 H (1.6-2.3) mg/dL Folate (4.40-31.00) ng/mL 12/21/21 Range/Units 03:44 WBC (3.8-10.6) k/uL RBC (4.30-5.90) m/uL MCV (80.0-100.0) fL MCH (25.0-35.0) pg Neutrophils # (1.3-7.7) k/uL Lymphocytes # (1.0-4.8) k/uL Macrocytosis Sodium 136 L (137-145) mmol/L Carbon Dioxide (22-30) mmol/L Glucose 128 H (74-99) mg/dL POC Glucose (mg/dL) (70-110) mg/dL Calcium 8.3 L (8.4-10.2) mg/dL Magnesium (1.6-2.3) mg/dL Folate (4.40-31.00) ng/mL Microbiology - Last 24 Hours (Table) 12/18/21 17:41 Blood Culture - Preliminary Blood No Growth after 48 hours Assessment and Plan Assessment: * Acute ischemic stroke involving small areas of subcortical deep white matter bilaterally (1 on each side), probably from small vessel disease. Patient at present only has very mild right-sided pronation, but no drift. The rest of the examination is nonfocal. * New onset seizure, unclear etiology. Patient's blood pressure was uncontrolled. Seizures could be related to hypertensive encephalopathy. * Hypertension * Hypertensive urgency. * Macrocytosis * Tobacco use * Marijuana use * Vitamin B12 deficiency Plan: * Patient has remarkably improved. Patient's examination is almost nonfocal. Continue dual antiplatelet medications including aspirin 81 mg and Plavix 75 mg for 21 days. Thereafter may stop Plavix and continue aspirin 81 mg indefinitely. * CTA of head and neck revealed no significant stenosis or aneurysm. * MRI of the brain revealed diffusion weighted imaging demonstrates several punctate foci of increased signal within the bilateral external capsules, as well as the right vasquez radiata compatible with acute deep white matter insults. I personally reviewed MRI, agree with the findings. * 2-D echo revealed normal left-ventricular size and systolic function with moderate-to clear hypertrophy. No evidence of shunting by bubble study. Mild mitral and tricuspid regurgitation. EF is 55-60% left atrial size is normal. * Hemoglobin A1c 5.2 * EEG for new onset seizure. * B12 206, folate <2.0. Patient will be started on B12 and folate replacement. * Lipid panel with cholesterol 200, LDL 138, HDL 32 and triglycerides 143. Patient started on Lipitor 40 mg daily. * PT OT evaluate gait. * DVT prophylaxis: Patient on Lovenox 40 mg subcu daily. * Dr. Jarrett Lin will resume neurology service in the morning.
[2021-12-21 16:21] LABS: Glucose,Whole Blood 134 mg/dL (70-110)
[2021-12-21] MEDS: predniSONE 20 MG TAB PO SCH (17:51)
[2021-12-21] MEDS: LEVOFLOXACIN 750 MG TAB PO SCH (17:52)
[2021-12-21] MEDS: CYANOCOBALAMIN 1,000 MCG/ML 1 ML VIAL IM SCH (17:54)
[2021-12-21] MEDS: hydrALAZINE HCL 20 MG/ML 1 ML VIAL IVP PRN (20:13)
[2021-12-22] MEDS: hydrALAZINE HCL 20 MG/ML 1 ML VIAL IVP PRN ×3 (06:28→20:59)
[2021-12-22] MEDS: IPRATROPIUM-ALBUTEROL 3 ML NEB INHALATION SCH ×4 (08:40→22:44)
[2021-12-22 09:03] LABS: Estimated Average Glucose CANCELED
[2021-12-22] MEDS: NICOTINE 21MG/24HR PATCH TRANSDERM SCH (09:12)
[2021-12-22] MEDS: CYANOCOBALAMIN 1,000 MCG/ML 1 ML VIAL IM SCH (09:13)
[2021-12-22] MEDS: ASPIRIN 81 MG PO SCH (09:13)
[2021-12-22] MEDS: ENOXAPARIN 40 MG/0.4 ML SYRINGE SQ SCH (09:13)
[2021-12-22] MEDS: CLOPIDOGREL 75 MG TAB PO SCH (09:13)
[2021-12-22] MEDS: FOLIC ACID 1 MG TAB PO SCH (09:13)
[2021-12-22] MEDS: levETIRAcetam 500 MG TAB PO SCH ×2 (09:13→22:01)
[2021-12-22] MEDS: ATORVASTATIN 40 MG TAB PO SCH (09:13)
[2021-12-22] MEDS: predniSONE 20 MG TAB PO SCH (09:14)
[2021-12-22] MEDS: LOSARTAN 25 MG TAB PO SCH (09:14)
--- NOTE | 2021-12-22 11:27 | P.PN ---
Subjective Progress Note Date: 12/22/21 I am seeing the patient for the first time during this hospital visit. Please refer to Dr. Alan for further details. It seems the patient had uncontrolled hypertension and new onset seizure. Per nurse no further seizures. Has acute subcortical infarcts bilaterally. Per nurse his mentation is drastically better. Objective - Vital Signs Vital signs: Vital Signs Temp 97.8 F 12/22/21 09:00 Pulse 92 12/22/21 09:00 Resp 18 12/22/21 09:00 BP 145/82 12/22/21 09:00 Pulse Ox 93 L 12/22/21 09:00 FiO2 98.2 12/20/21 11:16 Intake & Output 12/21/21 12/22/21 12/22/21 18:59 06:59 18:59 Intake Total 10 200 Output Total 555 500 Balance -545 -300 Intake: IV 10 Sodium Chloride 0.9% 1, 10 000 ml @ 130 mls/hr IV . Q7H42M [facility] Rx#:[id number] Oral 200 Output: Urine 555 500 Other: Voiding Method Urinal - Exam GENERAL: The patient is lying in bed and is not in acute distress. NEUROLOGICAL: Higher mental function: The patient is awake, alert, oriented to self, place and time. Patient is following commands. No aphasia and no neglect. Cranial nerves: The pupils are round, equal and reactive to light and accommodation. Visual thakkar are full to confrontation throughout. Extraocular movement is intact no nystagmus is noted. Facial sensation is normal to touch throughout. The facial strength is normal throughout. Tongue is midline and moved [id number] without any difficulty. No dysarthria is noted. Shoulder shrug is normal bilaterally. Motor: The strength is 5 over 5 throughout. Normal tone and bulk. Cerebellum: Normal finger to nose bilaterally. Sensation: Sensation is normal to touch throughout.. - Labs CBC & Chem 7: 12/21/21 03:44 12/21/21 03:44 Labs: Abnormal Lab Results - Last 24 Hours (Table) 12/21/21 12/21/21 Range/Units 11:24 16:20 POC Glucose (mg/dL) 157 H 134 H (70-110) mg/dL Microbiology - Last 24 Hours (Table) 12/18/21 17:41 Blood Culture - Preliminary Blood No Growth after 72 hours Assessment and Plan Assessment: * Acute ischemic stroke involving small areas of subcortical deep white matter bilaterally (1 on each side) (right > left), probably from small vessel disease. Patient at present only has very mild right-sided pronation, but no drift. The rest of the examination is nonfocal. * New onset seizure, unclear etiology. Patient's blood pressure was uncontrolled. Seizures could be related to hypertensive encephalopathy. * Hypertension * Hypertensive urgency. * Macrocytosis * Tobacco use * Marijuana use * Vitamin B12 deficiency Plan: * Patient has remarkably improved. Patient's examination is almost nonfocal. Per Dr. Alan, continue dual antiplatelet medications including aspirin 81 mg and Plavix 75 mg for 21 days, then may stop Plavix and continue aspirin 81 mg indefinitely. * CTA of head and neck revealed no significant stenosis or aneurysm. * MRI of the brain revealed diffusion weighted imaging demonstrates several punctate foci of increased signal within the bilateral external capsules, as well as the right vasquez radiata compatible with acute deep white matter insults. * 2-D echo revealed normal left-ventricular size and systolic function with moderate-to clear hypertrophy. No evidence of shunting by bubble study. Mild mitral and tricuspid regurgitation. EF is 55-60% left atrial size is normal. * Hemoglobin A1c 5.2 * EEG for new onset seizure ordered by Dr. Alan: Preliminary report is normal. No seizures. * B12 206, folate <2.0. Patient will be started on B12 and folate replacement. * Lipid panel with cholesterol 200, LDL 138, HDL 32 and triglycerides 143. Patient started on Lipitor 40 mg daily. * PT OT evaluate gait. * DVT prophylaxis: Patient on Lovenox 40 mg subcu daily. The plan is discussed with patient and his nurse. No additional work-up. If patient continues to be stable then clear for discharge from neurological perspective. Jarrett Lin M.D. Neuro-Hospitalist Time with Patient: Less than 30
--- NOTE | 2021-12-22 11:40 | P.PN ---
Subjective Progress Note Date: 12/22/21 Patient says that he worked with speech therapy this morning and did well. Patient denies any acute complaints. He is amenable to going to rehab. I discussed with clinical social worker about placement. Patient blood pressure also slightly elevated this morning. I started the patient on losartan. Objective - Vital Signs Vital signs: Vital Signs Temp 97.8 F 12/22/21 09:00 Pulse 92 12/22/21 09:00 Resp 18 12/22/21 09:00 BP 145/82 12/22/21 09:00 Pulse Ox 93 L 12/22/21 09:00 FiO2 98.2 12/20/21 11:16 Intake & Output 12/21/21 12/22/21 12/22/21 18:59 06:59 18:59 Intake Total 10 200 Output Total 555 500 Balance -545 -300 Intake: IV 10 Sodium Chloride 0.9% 1, 10 000 ml @ 130 mls/hr IV . Q7H42M [facility] Rx#:[id number] Oral 200 Output: Urine 555 500 Other: Voiding Method Urinal - Exam General examination - Alert and Oriented 3 in NAD, appears chronically debilitated Heart - + S1S2 no murmurs Lungs -diminished breath sounds bilaterally Abdomen soft NT ND +ve BS Extremities - No edema BATTERY HAND - Moving all 4 extremities spontaneously, no focal deficits Psych - Calm and cooperative - Labs CBC & Chem 7: 12/21/21 03:44 12/21/21 03:44 Labs: Abnormal Lab Results - Last 24 Hours (Table) 12/21/21 Range/Units 16:20 POC Glucose (mg/dL) 134 H (70-110) mg/dL Microbiology - Last 24 Hours (Table) 12/18/21 17:41 Blood Culture - Preliminary Blood No Growth after 72 hours Assessment and Plan Assessment: Shortness of breath Likely due to COPD exacerbation and acute bronchitis Resume duo nebs, steroids, Levaquin Patient transitioned to oral steroids Pulmonology following Improving Stroke alert on 12/20/2021 for aphaisa and facial droop Acute CVA confirmed on MRI: Symptoms have now resolved CT head negative for bleed. CTA head and neck negative for occlusion Patient not a TPA candidate per neuro-supervisor pleating MRI confirms acute stroke and shows acute deep white matter insults Echocardiogram shows normal LV and negative bubble study LDL is 138 -> patient on high intensity started Hemoglobin A1c is 5.2 Speach therapy cleared patient for normal diet Patient started on aspirin and statin and Plavix Neurology on board New onset witnessed seizure after stroke alert on 12/20/2021 Patient loaded with Keppra and started on 500 mg Keppra twice a day Hypertension urgency Patient completed 48 hours of permissive hypertension Patient started on losartan Monitor blood pressure Generalized weakness Consult PT OT -> recommends [facility] facility Elevated ALP Patient denying any right upper quadrant pain We'll check a PSA Elevated d-dimer CTA chest negative for pulmonary embolism No clinical evidence of DVT Noncompliant with follow-up Patient counseled that he needs to follow-up with his doctors closely. History of alcohol use Patient states that he only drinks 2 shots at nighttime to help him sleep Patient counseled on alcohol cessation Patient has had no signs of alcohol withdrawal during his hospitalization. Tobacco abuse Nicotine patch CODE STATUS:full code DVT prophylaxis: Lovenox Anticipated discharge place: [facility] facility Patient stable for discharge to [facility] facility
[2021-12-22 11:56] LABS: Glucose,Whole Blood 100 mg/dL (70-110)
--- NOTE | 2021-12-22 12:09 | P.PN ---
Subjective Progress Note Date: 12/22/21 Principal diagnosis: Acute seizure activity with postictal phase and acute exacerbation of COPD This is a 59-year-old male patient, came into the hospital because of worsening shortness of breath. He was told by family members to presented to the hospital as the patient was having significant amount of difficulties breathing. Is a chronic smoker. He has not seen a chefs in the past. The patient was smoking many ask of cigarettes a day needs trying to quit smoking for now. He continues to smoke 1 pack of cigarettes a day. No maintenance inhalers. No Oxygen therapy. No previous hospitalizations for any pulmonary related complications. The patient was using Primatene Mist on outpatient basis. The patient presented to the hospital because of increased dyspnea. Cough and congestion and wheezing was also present. No hemoptysis. No pleurisy. Chest x-ray was done. CT angiogram was done. No evidence of any pulmonary embolism. Some limited scattered opacities bilaterally involving the lingula in the periphery of the lower lobes that was attributed to retained secretions. The white cell count was at 9.2 with a hemoglobin of 16.4 and a platelet count of 298. BUN is at 22 with a creatinine 0.7. Sodium is at 139. The patient has a negative UA. Alcohol level was negative. COVID 19 testing was negative. The patient states that he has taken vaccination 2 for COVID 19. He is currently on a combination of bronchodilators and steroids and is also on empiric antibiotic coverage with Levaquin. IV fluids of normal saline at the rate of 130 mL an hour. Most of any cardiac disease. On 12/20/2021, the patient got transferred to the intensive care unit. I was approached by the hospitalist stating that the patient had some neurologic even ts. Earlier this morning, the patient some numbness in his tongue and following that he had a right facial droop and right-sided weakness and he became aphasic. Based on that, a code stroke was initiated. The patient underwent a CAT scan of the brain that showed age-related atrophy and chronic small vessel ischemic changes without any acute abnormalities. Following that, the patient was given a CT angiogram that was done this morning showed atherosclerotic changes without any obvious vascular occlusion. No significant reduction or changes in the common carotid on the right than the left. The vertebrobasilar system was also patent. After the patient came back from CAT scan, he had a brief seizure episodes when post ictal and subsequently regained his consciousness. The stroke team was consulted and the patient was not found to be a good candidate for TPA. His initial NIH score was 2 and later on dropped down to 1. He was hypertensive during this process and his current blood pressure is under better control with the most recent systolic blood pressure being 158 with a diastolic of 94. His blood pressure peaked at 206/97. He is currently on 2 L of oxygen by nasal cannula with pulse ox of 97%. His communicating. No focal neurological deficits. Adequate motor function on the right side. Adequate speech. Pupils are equal and reactive to light. Neurology has been informed. Patient was given Keppra. On 12/21/2021, the patient is awake and alert and following commands and answering questions appropriately. No neurologic deficits his morning. MRI of the brain was done yesterday and the MRI of the brain showed some increased signal within the bilateral external capsule as well as the right coronary radiata compatible with acute deep white matter insults. The patient has no headache. The patient is normotensive. No seizure activity has been noted. The patient remains on Keppra 500 mg every 12 hours. Brester status is also stable. Less short of breath. Limited congestion. No significant sputum production. No hemoptysis or pleurisy. The patient remains on DuoNeb nebulized treatments around the clock and IV Solu-Medrol. The patient is on Lovenox for DVT prophylaxis. The patient is also on empiric antibiotic coverage with Levaquin. No signs of any delirium tremens and the patient is taking nicotine patch. Reevaluated today on 12/22/21, patient is doing great, relatively asymptomatic, he is alert oriented 3, he is in no distress, doing great, no cough no wheezing no shortness of breath. Patient remains on Keppra, and he is being followed by neurology. Patient will be transferred to regular medical floor today. Objective - Vital Signs Vital signs: Vital Signs Temp 97.8 F 12/22/21 09:00 Pulse 92 12/22/21 09:00 Resp 18 12/22/21 09:00 BP 145/82 12/22/21 09:00 Pulse Ox 93 L 12/22/21 09:00 FiO2 98.2 12/20/21 11:16 Intake & Output 12/21/21 12/22/21 12/22/21 18:59 06:59 18:59 Intake Total 10 200 Output Total 555 500 Balance -545 -300 Intake: IV 10 Sodium Chloride 0.9% 1, 10 000 ml @ 130 mls/hr IV . Q7H42M [facility] Rx#:[id number] Oral 200 Output: Urine 555 500 Other: Voiding Method Urinal - Exam Physical Exam: Revealed a 61-year-old white male in no distress. Head: Atraumatic, normocephalic. HEENT:[Neck is supple.] [No neck masses.] [No thyromegaly.] [No JVD.] Chest: [Clear throughout, no crackles, no rhonchi, no wheezes.] Cardiac Exam: [Normal S1 and S2, no S3 gallop, no murmur.] Abdomen: [Soft, nontender, no megaly, no rebound, no guarding, normal bowel sounds.] Extremities: [No clubbing, no edema, no cyanosis.] Neurological Exam: [No focal neurologic deficit.] Alert and oriented 3 Psychiatric: Normal mood affect and normal mental status examination. Skin: No rashes - Labs CBC & Chem 7: 12/21/21 03:44 12/21/21 03:44 Labs: Abnormal Lab Results - Last 24 Hours (Table) 12/21/21 Range/Units 16:20 POC Glucose (mg/dL) 134 H (70-110) mg/dL Microbiology - Last 24 Hours (Table) 12/18/21 17:41 Blood Culture - Preliminary Blood No Growth after 72 hours Assessment and Plan Assessment: Impression: Acute seizure with post ictal state Acute exacerbation of COPD Possible TIA or CVA under investigation Acute hypoxic respiratory failure secondary to COPD exacerbation. Benign essential hypertension Tobacco dependence syndrome Recommendation: Continue seizure precautions Continue Keppra Continue bronchodilators and steroids as well as antibiotics Continue prednisone Transfer to a medical surgical floor. Neurology is following. We'll continue to follow Time with Patient: Less than 30
[2021-12-22] MEDS: NIFEdipine XL 30 MG TAB.ER.24 PO SCH (15:32)
[2021-12-22] MEDS: LEVOFLOXACIN 750 MG TAB PO SCH (17:05)
[2021-12-22 20:17] LABS: Glucose,Whole Blood 104 mg/dL (70-110)
--- NOTE | 2021-12-22 23:47 | EEG ---
ELECTROENCEPHALOGRAM REPORT CLINICAL HISTORY: This is a 61-year-old gentleman with new onset seizure. The video EEG is obtained to evaluate for seizure epileptiform discharges. RELEVANT MEDICATION: The patient is not on any seizure medication. EEG TYPE: A routine 21-channel EEG is performed with video using the 10/20 electrode placement system. DESCRIPTION: Wakefulness is only obtained. During awake state, the background consists of low to moderate voltage of 8.5 to 9 hertz activity that is well modulated, well sustained. There is no physiological stage 2 sleep architecture. There is no focal slowing. INTERICTAL AND ICTAL: None. ACTIVATION PROCEDURE: Photic stimulation did not evoke a posterior driving response. There is no abnormality during the photic stimulation. Hyperventilation is not performed. CLINICAL INTERPRETATION: This is a normal routine EEG. There is no focal slowing, epileptiform discharge, or seizure on the EEG. Clinical correlation is recommended JERRY / JUANCARLOS: [id number] / MTDD
[2021-12-23 07:06] LABS: Glucose,Whole Blood 89 mg/dL (70-110)
[2021-12-23] MEDS: IPRATROPIUM-ALBUTEROL 3 ML NEB INHALATION SCH ×2 (07:19→11:00)
[2021-12-23 08:46] VITALS: BP 164/76; PULSE 93; RESP 16; TEMP 97.6
[2021-12-23] MEDS: ASPIRIN 81 MG PO SCH (09:34)
[2021-12-23] MEDS: LOSARTAN 25 MG TAB PO SCH (09:34)
[2021-12-23] MEDS: CLOPIDOGREL 75 MG TAB PO SCH (09:34)
[2021-12-23] MEDS: predniSONE 20 MG TAB PO SCH (09:34)
[2021-12-23] MEDS: ENOXAPARIN 40 MG/0.4 ML SYRINGE SQ SCH (09:34)
[2021-12-23] MEDS: ATORVASTATIN 40 MG TAB PO SCH (09:34)
[2021-12-23] MEDS: FOLIC ACID 1 MG TAB PO SCH (09:34)
[2021-12-23] MEDS: NIFEdipine XL 30 MG TAB.ER.24 PO SCH (09:34)
[2021-12-23] MEDS: NICOTINE 21MG/24HR PATCH TRANSDERM SCH (09:40)
[2021-12-23] MEDS: CYANOCOBALAMIN 1,000 MCG/ML 1 ML VIAL IM SCH (09:40)
[2021-12-23] MEDS: levETIRAcetam 500 MG TAB PO SCH (09:57)
--- NOTE | 2021-12-23 10:37 | P.DS ---
Providers Date of admission: 12/18/21 16:53 Expected date of discharge: 12/23/21 Attending physician: Mayra Long MD Consults: 12/18/21 17:11 Consult Physician Routine Consulting Provider: Mario Bowling Consult Reason/Comments: shortness of breath Do you want consulting provider notified?: Yes 12/20/21 09:06 Consult Physician Routine Consulting Provider: Jarrett Lin Consult Reason/Comments: CODE STROKE Do you want consulting provider notified?: Yes Primary care physician: Stated None Hospital Course: Patient is a 59-year-old male with a past medical history of tobacco abuse and likely underlying COPD who presents to the ED because his brother told him to come in. Patient states that his brother saw him at home and did not like the way he looked so told him to come in to get evaluated. Patient states that he has been having shortness of breath for years and over the last week he noticed increased sputum production. He also states that he has had weakness for years and again over the last week he has noticed that he has been falling more. Patient states that he lives alone at home. He states that he depends on his brother to get all his groceries. Patient states that he smokes 1 and 1/2 pack per day. He states that he hasn't seen a physician since he was in the which was "many years ago". He states that he drinks 2 shots of alcohol at night to help him sleep. He is currently denying any withdrawal symptoms or urge to smoke. Patient states that he wants to quit smoking and make a change in his life. In the ED patient's labs were unremarkable except for an elevated d-dimer and ALP. So patient had a CTA chest done that was negative for pulmonary embolism but did show scattered areas of opacities within the lingula and right peripheral lateral lobe and single right lower lobe which is opacified likely due to retained secretions. Patient denies any fever or chills. His WBC is 9.2. He is afebrile. Patient was given Levaquin and breathing treatments and IV Solu-Medrol for COPD exacerbation. In the ED patient's blood pressure was also above 200 systolically. He was given IV hydralazine. Patient was started on Levaquin by mouth for concerns acute bronchitis. He was started on DuoNeb scheduled and as needed for shortness of breath and wheezing along with steroids. He was started on losartan and nifedipine and Imdur for hypertensive urgency. CODE STROKE was activated on 12/20/2021. CT head and CTA head and neck was negative for acute CVA. He was also noted to have new onset seizure after code stroke alert which was confirmed with EEG. Neurology was consulted and patient was loaded with Keppra. He was started on Keppra 500 mg by mouth twice a day. MRI brain showed diffusion weighted imaging with several punctate foci of increased signal within the bilateral external capsules as well as the right vasquez radiata compatible with acute deep white matter insults. Echocardiogram showed EF 55-60% with moderate LVH. Hemoglobin A1c within normal limits. Patient was started on aspirin and Plavix by neurology. Patient seen and examined. No acute events overnight. Patient reports no complaints. He is advised follow-up with his PCP within 1-2 days of discharge. Advised to follow-up with neurology within 1 week of discharge. Advised to follow-up with pulmonology within 1 week of discharge. He is advised against driving. He is advised against drinking alcohol. Patient verbalized understanding of the plan. He'll be discharged home on aspirin 81 mg by mouth daily, Plavix 75 mg by mouth daily, Lipitor 40 mg by mouth daily, Levaquin 750 mg by mouth for 3 days, Keppra 500 mg by mouth twice a day, losartan 25 mg by mouth daily, nifedipine 30 mg by mouth daily and albuterol inhaler along with Medrol Dosepak. Patient is unable to go to rehab due to lack of insurance coverage. Case management was on board to obtain medication prior to discharge as patient was uninsured. General: non toxic, no distress, appears at stated age Derm: warm, dry Head: atraumatic, normocephalic, symmetric Eyes: EOMI, no lid lag, anicteric sclera Mouth: no lip lesion, mucus membranes moist Cardiovascular: S1S2 reg, no murmur Lungs: Decreased breath sounds bilateral, no rhonchi, no rales , no accessory muscle use Ext: no gross muscle atrophy, no edema, no contractures Neuro: no focal neuro deficits Psych: Alert, oriented, appropriate affect Discharge diagnoses: COPD exacerbation Acute bronchitis Acute CVA New-onset seizure Hypertensive urgency Generalized weakness Elevated ALP Elevated d-dimer History of alcohol abuse Tobacco abuse This complex discharge took 45 minutes to complete. Health Concerns: Brain CT CTA chest Chest x-ray CTA head and neck Brain MRI Echocardiogram EEG Patient Condition at Discharge: Stable Plan - Discharge Summary Discharge Rx Participant: No New Discharge Prescriptions: New Aspirin 81 mg PO DAILY #30 tab levETIRAcetam [Keppra] 500 mg PO Q12HR #60 tab Levofloxacin [Levaquin] 750 mg PO DAILY@1800 #3 tab Atorvastatin [Lipitor] 40 mg PO DAILY #30 tab Losartan [Cozaar] 25 mg PO DAILY #30 tab Clopidogrel [Plavix] 75 mg PO DAILY #30 tab NIFEdipine XL [Procardia XL] 30 mg PO DAILY #30 tab Acetaminophen Tab [Tylenol] 650 mg PO Q6HR PRN tab PRN Reason: Mild Pain Or Fever > 100.5 Albuterol Inhaler [Ventolin Hfa Inhaler] 1 puff INHALATION QID PRN #8 gm PRN Reason: Shortness Of Breath methylPREDNISolone Dose Pack [Medrol Dose Pack] 4 mg PO DIRECTED #1 packet Continue EPINEPHrine [Primatene Mist] 2 puff INHALATION RT-HS Discharge Medication List EPINEPHrine [Primatene Mist] 2 puff INHALATION RT-HS 12/18/21 [History] Acetaminophen Tab [Tylenol] 650 mg PO Q6HR PRN tab 12/23/21 [Rx] Albuterol Inhaler [Ventolin Hfa Inhaler] 1 puff INHALATION QID PRN #8 gm 12/23/21 [Rx] Aspirin 81 mg PO DAILY #30 tab 12/23/21 [Rx] Atorvastatin [Lipitor] 40 mg PO DAILY #30 tab 12/23/21 [Rx] Clopidogrel [Plavix] 75 mg PO DAILY #30 tab 12/23/21 [Rx] Levofloxacin [Levaquin] 750 mg PO DAILY@1800 #3 tab 12/23/21 [Rx] Losartan [Cozaar] 25 mg PO DAILY #30 tab 12/23/21 [Rx] NIFEdipine XL [Procardia XL] 30 mg PO DAILY #30 tab 12/23/21 [Rx] levETIRAcetam [Keppra] 500 mg PO Q12HR #60 tab 12/23/21 [Rx] methylPREDNISolone Dose Pack [Medrol Dose Pack] 4 mg PO DIRECTED #1 packet 12/23/21 [Rx] Follow up Appointment(s)/Referral(s): Rosina Underwood MD [STAFF PHYSICIAN] - 1 Week Capo Bolton MD [REFERRING] - 1 Week None,Stated [Primary Care Provider] - 1-2 days Patient Instructions/Handouts: Ischemic Stroke (IP) Activity/Diet/Wound Care/Special Instructions: Diet: Cardiac FU PCP within 1-2 days of DC. FU Neurology within 1 week of DC. FU Pulmonology within 1 week of DC. Take all medications as advised. Do not drive until cleared by Neurology. Discharge Disposition: HOME SELF-CARE
[2021-12-23 11:40] LABS: Glucose,Whole Blood 116 mg/dL (70-110)
--- NOTE | 2021-12-23 14:00 | P.PN ---
Subjective Progress Note Date: 12/23/21 This is a 59-year-old male patient, came into the hospital because of worsening shortness of breath. He was told by family members to presented to the hospital as the patient was having significant amount of difficulties breathing. Is a chronic smoker. He has not seen a tiler's assistant in the past. The patient was smoking many ask of cigarettes a day needs trying to quit smoking for now. He continues to smoke 1 pack of cigarettes a day. No maintenance inhalers. No Oxygen therapy. No previous hospitalizations for any pulmonary related complications. The patient was using Primatene Mist on outpatient basis. The patient presented to the hospital because of increased dyspnea. Cough and conge stion and wheezing was also present. No hemoptysis. No pleurisy. Chest x-ray was done. CT angiogram was done. No evidence of any pulmonary embolism. Some limited scattered opacities bilaterally involving the lingula in the periphery of the lower lobes that was attributed to retained secretions. The white cell count was at 9.2 with a hemoglobin of 16.4 and a platelet count of 298. BUN is at 22 with a creatinine 0.7. Sodium is at 139. The patient has a negative UA. Alcohol level was negative. COVID 19 testing was negative. The patient states that he has taken vaccination 2 for COVID 19. He is currently on a combination of bronchodilators and steroids and is also on empiric antibiotic coverage with Levaquin. IV fluids of normal saline at the rate of 130 mL an hour. Most of an y cardiac disease. On 12/20/2021, the patient got transferred to the intensive care unit. I was ap proached by the hospitalist stating that the patient had some neurologic events. Earlier this morning, the patient some numbness in his tongue and following that he had a right facial droop and right-sided weakness and he became aphasic. Based on that, a code stroke was initiated. The patient underwent a CAT scan of the brain that showed age-related atrophy and chronic small vessel ischemic changes without any acute abnormalities. Following that, the patient was given a CT angiogram that was done this morning showed atherosclerotic changes without any obvious vascular occlusion. No significant reduction or changes in the common carotid on the right than the left. The vertebrobasilar system was also patent. After the patient came back from CAT scan, he had a brief seizure episodes when post ictal and subsequently regained his consciousness. The stroke team was consulted and the patient was not found to be a good candidate for TPA. His initial NIH score was 2 and later on dropped down to 1. He was hypertensive during this process and his current blood pressure is under better control with the most recent systolic blood pressure being 158 with a diastolic of 94. His blood pressure peaked at 206/97. He is currently on 2 L of oxygen by nasal cannula with pulse ox of 97%. His communicating. No focal neurological deficits. Adequate motor function on the right side. Adequate speech. Pupils are equal and reactive to light. Neurology has been informed. Patient was given Keppra. On 12/21/2021, the patient is awake and alert and following commands and answering questions appropriately. No neurologic deficits his morning. MRI of the brain was done yesterday and the MRI of the brain showed some increased signal within the bilateral external capsule as well as the right coronary radiata compatible with acute deep white matter insults. The patient has no headache. The patient is normotensive. No seizure activity has been noted. The patient remains on Keppra 500 mg every 12 hours. Brester status is also stable. Less short of breath. Limited congestion. No significant sputum production. No hemoptysis or pleurisy. The patient remains on DuoNeb nebulized treatments around the clock and IV Solu-Medrol. The patient is on Lovenox for DVT prophylaxis. The patient is also on empiric antibiotic coverage with Levaquin. No signs of any delirium tremens and the patient is taking nicotine patch. Reevaluated today on 12/22/21, patient is doing great, relatively asymptomatic, he is alert oriented 3, he is in no distress, doing great, no cough no wheezing no shortness of breath. Patient remains on Keppra, and he is being followed by neurology. Patient will be transferred to regular medical floor today. The patient is seen today 12/23/2021 in follow-up on the regular medical floor. He is awake and alert in no acute distress. Maintaining good O2 saturations in the 90s on room air. Feeling quite a bit better. Nearly back to baseline. No evidence of seizure activity. EEG was reviewed as normal. No focal slowing, epileptiform discharge or seizure noted. He is currently on DuoNeb inhalations, Lovenox for DVT prophylaxis, antibiotics in the form of Levaquin. NicoDerm patch in place. Remains on prednisone taper. Objective - Vital Signs Vital signs: Vital Signs Temp 97.6 F 12/23/21 08:00 Pulse 93 12/23/21 08:00 Resp 16 12/23/21 08:00 BP 164/76 12/23/21 08:00 Pulse Ox 96 12/23/21 08:00 FiO2 98.2 12/20/21 11:16 Intake & Output 12/22/21 12/23/21 12/23/21 18:59 06:59 18:59 Output Total 0 175 Balance 0 -175 Output: Urine 0 175 Other: Voiding Method Urinal Urinal Urinal # Voids 2 - Exam The patient is a very pleasant 59-year-old male patient, well nourished and normally developed. Vital signs as documented. Head exam is unremarkable. No scleral icterus or corneal arcus noted. Neck is without jugular venous distension, thyromegaly, or carotid bruits. Carotid upstrokes are brisk bilaterally. Lungs sounds are diminished and expiratory wheezes throughout the lung his bilaterally and the patient is prolongation of exhalation phase of breathing.. Cardiac exam reveals the PMI to be normally sized and situated. Rhythm is regular. First and second heart sounds normal. No murmurs, rubs or gallops. Abdominal exam reveals normal bowel sounds, no masses, no organomegaly and no aortic enlargement. Extremities are nonedematous and both femoral and pedal pulses are normal.Examination of the skin revealed no evidence of significant rashes, suspicious appearing nevi or other concerning lesions.Neurologically, the patient is awake and alert and the patient does not have any focal neurological deficit. Cranial nerves are essentially intact. - Labs CBC & Chem 7: 12/21/21 03:44 12/21/21 03:44 Labs: Abnormal Lab Results - Last 24 Hours (Table) 12/23/21 Range/Units 11:39 POC Glucose (mg/dL) 116 H (70-110) mg/dL Microbiology - Last 24 Hours (Table) 12/18/21 17:41 Blood Culture - Preliminary Blood No Growth after 96 hours Assessment and Plan Assessment: Acute COPD exacerbation, recovered Acute TIA versus CVA under investigation. CTA of the brain was negative. Neurology consultation was initiated, no further seizure activity. Neurologic exam is within normal and the patient's MRI of the brain showed some deep white matter insult involving the vasquez radiata/external capsule. EEG revealed no seizure activity. Acute seizures with postictal state, recovered and the patient is back to normal currently on Keppra Shortness of breath secondary to above. The patient's has acute on top of chronic dyspnea and his chronic shortness of breath related to COPD. Acute hypoxic respiratory failure secondary to above, currently on room air Smoker Hypertension Plan: The patient was seen and evaluated Stable from the pulmonary standpoint Educated regarding the importance of complete smoking cessation Home once cleared by neurology I have personally seen and examined the patient, performed the documentation and the assessment and plan as written. Number of minutes spent on the visit: 10.
== END 2021-12-23 14:20 | disposition home or self-care (01) | DRG 190 ==
LOC: EC 12:05 → 3SCARD 16:53 → 2SICU 12-20 11:08 → 4SSUR 12-22 17:53
PROVIDERS: ADMIT Internal Medicine; ATTEND Internal Medicine
DX: J44.1 Chronic obstructive pulmonary disease with (acute) exacerbation (principal); I63.9 Cerebral infarction, unspecified; J96.01 Acute respiratory failure with hypoxia; R47.01 Aphasia; J44.0 Chronic obstructive pulmonary disease with (acute) lower respiratory infection; J20.9 Acute bronchitis, unspecified; R29.702 NIHSS score 2; R79.1 Abnormal coagulation profile; R29.810 Facial weakness; R56.9 Unspecified convulsions; Z20.822 Contact with and (suspected) exposure to COVID-19; G93.89 Other specified disorders of brain; I16.0 Hypertensive urgency; D75.89 Other specified diseases of blood and blood-forming organs; E53.8 Deficiency of other specified B group vitamins; R74.8 Abnormal levels of other serum enzymes; E86.0 Dehydration; F17.210 Nicotine dependence, cigarettes, uncomplicated; I10 Essential (primary) hypertension; Z59.7 Insufficient social insurance and welfare support; F10.10 Alcohol abuse, uncomplicated; Z71.41 Alcohol abuse counseling and surveillance of alcoholic; Z60.2 Problems related to living alone; Z79.02 Long term (current) use of antithrombotics/antiplatelets; Z79.82 Long term (current) use of aspirin; Z79.899 Other long term (current) drug therapy; Z86.73 Personal history of transient ischemic attack (TIA), and cerebral infarction without residual deficits; Z91.19 Patient's noncompliance with other medical treatment and regimen; Z71.89 Other specified counseling
CPT/HCPCS: 36415; 70450; 70496; 70498; 70551; 71046; 71275; 80048; 80053; 80061; 80320; 81003; 82607; 82746; 83036; 83605; 83690; 83735; 83880; 84100; 84153; 84154; 84484; 85025; 85027; 85379; 85610; 85730; 87040; 87635; 93005; 93306; 94640; 94760; 95816; 96361; 96372; 96374; 96375; 96376; 99291

== ENCOUNTER 2022-01-03 20:45 | Observation (INO) | payer OTHER ==
--- NOTE | 2022-01-03 21:52 | XR ---
EXAMINATION TYPE: XR chest 2V DATE OF EXAM: 01/03/2022 COMPARISON: 12/18/2021 HISTORY: Cough TECHNIQUE: 2 view FINDINGS: Heart is normal. Lungs are clear of infiltrate. No heart failure. There are no hilar masses . The bony thorax is intact. There are calcified granulomata scattered in the lungs. IMPRESSION: No active cardiopulmonary disease. Normal heart. No change. Old granulomatous disease.
[2022-01-04] MEDS ORDERED: SODIUM CHLORIDE 0.9% 500 ML 500 ML IV STA (01:15)
[2022-01-04] MEDS ORDERED: methylPREDNISolone SOD SUCCI 125 MG/2 ML VIAL IV STA (01:15)
[2022-01-04] MEDS ORDERED: IPRATROPIUM-ALBUTEROL 3 ML NEB INHALATION STA ×2 (01:15→02:16)
[2022-01-04] MEDS ORDERED: SODIUM CHLORIDE 0.9% 1,000 ML IV STA (01:15)
--- NOTE | 2022-01-04 01:23 | ED ---
SOB HPI - General Chief Complaint: Shortness of Breath Stated Complaint: weakness,fever Time Seen by Provider: 01/04/22 00:52 Source: patient, RN notes reviewed, old records reviewed Mode of arrival: ambulatory Limitations: no limitations - History of Present Illness Initial Comments: This is a 61-year-old male to the emergency department for evaluation. This patient has a history of COPD. The patient presents for evaluation of weakness, significant weakness shortness of breath especially with exertion, patient was so weak he 4 mg a. Mild nausea no vomiting no fevers no chest pain. Mild cough or congestion increasing MD Complaint: shortness of breath, cough -: hour(s) Severity: moderate Severity scale (1-10): 7 Quality: aching Consistency: constant Improves With: nothing Worsens With: exertion, movement, coughing, inspiration Known History Of: COPD Context: recent URI, recent illness Associated Symptoms: chest pain, cough, sputum production Treatments Prior to Arrival: none - Related Data Home Medications Medication Instructions Recorded Confirmed EPINEPHrine [Primatene Mist] 2 puff INHALATION RT-HS 12/18/21 12/18/21 Previous Rx's Medication Instructions Recorded Acetaminophen Tab [Tylenol] 650 mg PO Q6HR PRN tab 12/23/21 Albuterol Inhaler [Ventolin Hfa 1 puff INHALATION QID PRN #8 gm 12/23/21 Inhaler] Aspirin 81 mg PO DAILY #30 tab 12/23/21 Atorvastatin [Lipitor] 40 mg PO DAILY #30 tab 12/23/21 Clopidogrel [Plavix] 75 mg PO DAILY #30 tab 12/23/21 Levofloxacin [Levaquin] 750 mg PO DAILY@1800 #3 tab 12/23/21 Losartan [Cozaar] 25 mg PO DAILY #30 tab 12/23/21 NIFEdipine XL [Procardia XL] 30 mg PO DAILY #30 tab 12/23/21 levETIRAcetam [Keppra] 500 mg PO Q12HR #60 tab 12/23/21 methylPREDNISolone Dose Pack 4 mg PO DIRECTED #1 packet 12/23/21 [Medrol Dose Pack] Allergies Allergy/AdvReac Type Severity Reaction Status Date / Time No Known Allergies Allergy Verified 01/03/22 21:20 Review of Systems ROS Statement: Those systems with pertinent positive or pertinent negative responses have been documented in the HPI. ROS Other: All systems not noted in ROS Statement are negative. Past Medical History Past Medical History: No Reported History, COPD History of Any Multi-Drug Resistant Organisms: None Reported Past Surgical History: No Surgical Hx Reported Past Anesthesia/Blood Transfusion Reactions: No Reported Reaction Past Psychological History: No Psychological Hx Reported Smoking Status: Former smoker Past Alcohol Use History: Rare Past Drug Use History: Marijuana General Exam Limitations: no limitations General appearance: alert, in no apparent distress, anxious Head exam: Present: atraumatic, normocephalic, normal inspection Eye exam: Present: normal appearance, PERRL, EOMI. Absent: scleral icterus, conjunctival injection, periorbital swelling ENT exam: Present: normal exam, mucous membranes moist Neck exam: Present: normal inspection. Absent: tenderness, meningismus, lymphadenopathy Respiratory exam: Present: normal lung sounds bilaterally, respiratory distress, wheezes, accessory muscle use, decreased breath sounds, prolonged expiratory. Absent: rales, rhonchi, stridor Cardiovascular Exam: Present: normal rhythm, tachycardia, normal heart sounds. Absent: systolic murmur, diastolic murmur, rubs, gallop, clicks GI/Abdominal exam: Present: soft, normal bowel sounds. Absent: distended, tenderness, guarding, rebound, rigid Extremities exam: Present: normal inspection, full ROM, normal capillary refill. Absent: tenderness, pedal edema, joint swelling, calf tenderness Back exam: Present: normal inspection Neurological exam: Present: alert, oriented X3, CN II-XII intact Psychiatric exam: Present: normal affect, normal mood Skin exam: Present: warm, dry, intact, normal color. Absent: rash Course Vital Signs 01/03/22 01/04/22 01/04/22 21:16 01:47 02:06 Temperature 99 F Pulse Rate 107 H 96 96 Respiratory 22 18 Rate Blood Pressure 122/81 136/90 O2 Sat by Pulse 93 L 94 L Oximetry 01/04/22 02:15 Temperature Pulse Rate 96 Respiratory Rate Blood Pressure O2 Sat by Pulse Oximetry - Reevaluation(s) Reevaluation #1: 01/04/22 02:19 Medical records reviewed Reevaluation #2: 01/04/22 02:19 Patient has no improvement in symptoms here in the ER Reevaluation #3: 01/04/22 02:19 Patient informed of results and questions answered - Consultations Consultation #1: Spoke with sound who will admit this patient Medical Decision Making - Medical Decision Making 61 male to the emergency department for evaluation of significant COPD exacerbation intractable cough. Patient will be admitted for breathing treatments and supportive care - Radiology Data Radiology results: report reviewed (Chest x-rays negative for acute disease), image reviewed Disposition Clinical Impression: COPD with exacerbation, Acute exacerbation of chronic obstructive pulmonary disease Disposition: ADMITTED IP TO THIS HOSP Condition: Fair Is patient prescribed a controlled substance at d/c from ED?: No Referrals: None,Stated [Primary Care Provider] - 1-2 days Time of Disposition: 02:10
[2022-01-04] MEDS ORDERED: BENZONATATE 100 MG CAP PO PRN (02:16)
[2022-01-04] MEDS ORDERED: NALOXONE 0.4 MG/ML 1 ML VIAL IVP PRN (02:16)
[2022-01-04] MEDS ORDERED: MORPHINE SULFATE 2 MG/ML SYRINGE IVP STA (02:17)
[2022-01-04] MEDS ORDERED: MORPHINE SULFATE 2 MG/ML SYRINGE IVP PRN (02:17)
[2022-01-04] MEDS ORDERED: IPRATROPIUM-ALBUTEROL 3 ML NEB INHALATION PRN (05:30)
--- NOTE | 2022-01-04 05:31 | P.HPIM ---
History of Present Illness H&P Date: 01/04/22 The patient is a 61-year-old male with a PMH of COPD, seizure disorder who presents to the emergency room with complaints of shortness of breath. The patient reports that over the past 2 days, he has been expressing gradually worsening shortness of breath and diffuse weakness. He reports that yesterday he had fallen down and was unable to stand up due to the profound weakness diffusely. He reports cough that is worse from his usual with associated shortness of breath and wheezing. Denies chest pain, nausea, vomiting, fever, chills. Of note, the patient was recently admitted last month for similar complaints and was treated for acute COPD exacerbation. Chest x-ray in the emergency room was unremarkable. Review of systems: Pertinent positives and negatives as discussed in HPI, a complete review of systems was performed and all other systems are negative. Physical examination: General: Disheveled, no distress, appears older than stated age, obese Derm: no unusual rashes/lesions, warm Head: atraumatic, normocephalic, symmetric Eyes: EOMI, no lid lag, anicteric sclera, pupils equal round reactive to light ENT: Nose and ears atraumatic Neck: No cervical lymphadenopathy, trachea midline, supple Mouth: no lip lesion, mucus membranes moist Cardiovascular: S1S2 reg, no murmur, positive dorsalis pedis pulse bilateral, no edema Lungs: Diffuse rhonchi and wheezing, no rales, no accessory muscle use Abdominal: soft, nontender to palpation, no guarding Ext: muscle strength 3 out of 5 in all 4 extremities grossly, no gross muscle atrophy, no contractures, Neuro: CN II-XI grossly intact, no gross focal neuro deficits Psych: Alert, oriented, appropriate affect Assessment/plan Acute COPD exacerbation -Continue with DuoNeb's and Solu-Medrol -Supplemental oxygen Debility -PT consult Chronic conditions: Seizure disorder -Continue with home meds once confirmed DVT prophylaxis -Heparin subcu The patient is admitted with an anticipated less than 2 midnight stay for evaluation of COPD exacerbation. CODE STATUS: Full Code Discussed with: Patient Anticipated discharge date: In a.m. Anticipated discharge place: Home Past Medical History Past Medical History: No Reported History, COPD History of Any Multi-Drug Resistant Organisms: None Reported Past Surgical History: No Surgical Hx Reported Past Anesthesia/Blood Transfusion Reactions: No Reported Reaction Past Psychological History: No Psychological Hx Reported Smoking Status: Former smoker Past Alcohol Use History: Rare Past Drug Use History: Marijuana - Past Family History Mother Family Medical History: COPD Medications and Allergies Home Medications Medication Instructions Recorded Confirmed Type EPINEPHrine [Primatene Mist] 2 puff INHALATION RT-HS 12/18/21 12/18/21 History Acetaminophen Tab [Tylenol] 650 mg PO Q6HR PRN tab 12/23/21 Rx Albuterol Inhaler [Ventolin Hfa 1 puff INHALATION QID PRN #8 gm 12/23/21 Rx Inhaler] Aspirin 81 mg PO DAILY #30 tab 12/23/21 Rx Atorvastatin [Lipitor] 40 mg PO DAILY #30 tab 12/23/21 Rx Clopidogrel [Plavix] 75 mg PO DAILY #30 tab 12/23/21 Rx Levofloxacin [Levaquin] 750 mg PO DAILY@1800 #3 tab 12/23/21 Rx Losartan [Cozaar] 25 mg PO DAILY #30 tab 12/23/21 Rx NIFEdipine XL [Procardia XL] 30 mg PO DAILY #30 tab 12/23/21 Rx levETIRAcetam [Keppra] 500 mg PO Q12HR #60 tab 12/23/21 Rx methylPREDNISolone Dose Pack 4 mg PO DIRECTED #1 packet 12/23/21 Rx [Medrol Dose Pack] Allergies Allergy/AdvReac Type Severity Reaction Status Date / Time No Known Allergies Allergy Verified 01/03/22 21:20 Physical Exam Vitals: Vital Signs Temp Pulse Resp BP Pulse Ox 01/04/22 02:15 96 01/04/22 02:06 96 01/04/22 01:47 96 18 136/90 94 L 01/03/22 21:16 99 F 107 H 22 122/81 93 L Intake and Output 01/03/22 01/03/22 01/04/22 14:59 22:59 06:59 Other: Weight 90.718 kg
[2022-01-04] MEDS: methylPREDNISolone SOD SUCCI 125 MG/2 ML VIAL IV SCH ×4 (06:13→23:08)
[2022-01-04] MEDS: IPRATROPIUM-ALBUTEROL 3 ML NEB INHALATION SCH ×4 (07:47→19:52)
[2022-01-04] MEDS ORDERED: ALBUTEROL NEBULIZED 2.5 MG/3 ML INHALATION SCH (08:00)
[2022-01-04] MEDS: HEPARIN SODIUM,PORCINE/PF 5,000 UNIT/0.5 ML SYRINGE SQ SCH ×3 (08:44→23:08)
[2022-01-04 12:34] LABS: Basophils % (A) 0 %; Eosinophils % (A) 0 %; HCT 42.6 % (39.0-53.0); HGB 14.3 gm/dL (13.0-17.5); Lymphocytes # (A) 0.6 k/uL (1.0-4.8); Lymphocytes % (A) 4 %; MCH 35.6 pg (25.0-35.0); MCHC 33.6 g/dL (31.0-37.0); Macrocytosis Moderate; Mean Platelet Volume 8.3; Monocytes # (A) 0.3 k/uL (0-1.0); Monocytes % (A) 2 %; Neutrophils % (A) 93 %; Platelet Count 233 k/uL (150-450); RBC 4.02 m/uL (4.30-5.90); RDW 14.5 % (11.5-15.5)
[2022-01-04 12:44] LABS: INR 0.9 (<1.2); Partial Thromboplastin Time 25.6 sec (22.0-30.0); Prothrombin Time 10.3 sec (9.0-12.0)
[2022-01-04 12:51] LABS: ALT 26 U/L (4-49); AST 27 U/L (17-59); African American GFR (CKD) >90 (>60 ml/min/1.73 sqM); Albumin 3.5 g/dL (3.5-5.0); Albumin/Globulin Ratio 1.3; Alkaline Phosphatase 131 U/L (38-126); Anion Gap 12 mmol/L; Blood Urea Nitrogen 26 mg/dL (9-20); Calcium 8.4 mg/dL (8.4-10.2); Carbon Dioxide 22 mmol/L (22-30); Chloride 101 mmol/L (98-107); Globulin 2.8 g/dL; Glucose 201 mg/dL (74-99); Magnesium 1.7 mg/dL (1.6-2.3); Non-African American GFR(CKD) >90 (>60 ml/min/1.73 sqM); Potassium 4.5 mmol/L (3.5-5.1); Sodium 135 mmol/L (137-145); Total Bilirubin 0.7 mg/dL (0.2-1.3); Total Protein 6.3 g/dL (6.3-8.2)
[2022-01-04] MEDS ORDERED: ALBUTEROL NEBULIZED 2.5 MG/3 ML INHALATION PRN (13:57)
[2022-01-04] MEDS ORDERED: ACETAMINOPHEN TAB 325 MG TAB PO PRN (13:57)
--- NOTE | 2022-01-04 13:57 | P.PN ---
Subjective Progress Note Date: 01/04/22 Patient reports significant improvement in breathing. Still feels quite weak. PT consult is pending. Gen: awake, alert HEENT: normocephalic, atraumatic, good hearing acuity, moist mucous membranes Resp: good air exchange, breathing comfortably with no accessory muscle use CVS: good distal perfusion x 4, GI: soft, NTTP, ND : no SPT, no CVAT, diaz catheter not present MSK: no pitting edema, no clubbing Neuro: non-focal, moving all extremities Psych: cooperative, euthymic mood Assessment/plan: Acute COPD exacerbation -Continue with DuoNeb's and Solu-Medrol -Supplemental oxygen Debility -PT consult Chronic conditions: Seizure disorder -Continue with home meds once confirmed DVT prophylaxis -Heparin subcu The patient is admitted with an anticipated less than 2 midnight stay for evaluation of COPD exacerbation. CODE STATUS: Full Code Discussed with: Patient Anticipated discharge date: In a.m. Anticipated discharge place: Home Objective - Vital Signs Vital signs: Vital Signs Temp 97.5 F L 01/04/22 07:24 Pulse 88 01/04/22 08:13 Resp 18 01/04/22 07:24 BP 147/63 01/04/22 07:24 Pulse Ox 97 01/04/22 07:24 FiO2 Intake & Output 01/03/22 01/04/22 01/04/22 18:59 06:59 18:59 Intake Total 118 Balance 118 Weight 90.718 kg 90.718 kg Intake: Oral 118 - Labs CBC & Chem 7: 01/04/22 11:46 01/04/22 11:46 Labs: Abnormal Lab Results - Last 24 Hours (Table) 01/04/22 01/04/22 Range/Units 11:46 11:46 WBC 15.0 H (3.8-10.6) k/uL RBC 4.02 L (4.30-5.90) m/uL MCV 106.0 H (80.0-100.0) fL MCH 35.6 H (25.0-35.0) pg Neutrophils # 14.0 H (1.3-7.7) k/uL Lymphocytes # 0.6 L (1.0-4.8) k/uL Sodium 135 L (137-145) mmol/L BUN 26 H (9-20) mg/dL Creatinine 0.59 L (0.66-1.25) mg/dL Glucose 201 H (74-99) mg/dL Alkaline Phosphatase 131 H (38-126) U/L
[2022-01-04] MEDS: CLOPIDOGREL 75 MG TAB PO SCH (14:39)
[2022-01-04] MEDS: NIFEdipine XL 30 MG TAB.ER.24 PO SCH (14:39)
[2022-01-04] MEDS: LOSARTAN 25 MG TAB PO SCH (14:39)
[2022-01-04] MEDS: levETIRAcetam 500 MG TAB PO SCH ×2 (14:39→21:23)
[2022-01-04] MEDS: ATORVASTATIN 40 MG TAB PO SCH (14:39)
[2022-01-04] MEDS: ASPIRIN 81 MG PO SCH (14:39)
[2022-01-05] MEDS: NON FORMULARY DRUG (Epinephrine [Primatene Mist] 11.7 GM Each) INHALATION SCH ×2 (00:55→20:13)
[2022-01-05] MEDS: methylPREDNISolone SOD SUCCI 125 MG/2 ML VIAL IV SCH ×4 (05:07→23:42)
[2022-01-05] MEDS: ASPIRIN 81 MG PO SCH (07:46)
[2022-01-05] MEDS: levETIRAcetam 500 MG TAB PO SCH ×2 (07:46→20:14)
[2022-01-05] MEDS: HEPARIN SODIUM,PORCINE/PF 5,000 UNIT/0.5 ML SYRINGE SQ SCH ×3 (07:46→23:42)
[2022-01-05] MEDS: NIFEdipine XL 30 MG TAB.ER.24 PO SCH (07:46)
[2022-01-05] MEDS: ATORVASTATIN 40 MG TAB PO SCH (07:46)
[2022-01-05] MEDS: CLOPIDOGREL 75 MG TAB PO SCH (07:46)
[2022-01-05] MEDS: LOSARTAN 25 MG TAB PO SCH (07:46)
[2022-01-05] MEDS: IPRATROPIUM-ALBUTEROL 3 ML NEB INHALATION SCH ×4 (07:47→20:17)
--- NOTE | 2022-01-05 14:18 | P.PN ---
Subjective Progress Note Date: 01/05/22 Patient reports improvement in breathing but not back to baseline. Still feels quite weak and unsteady. PT consult recommending home with home care. Gen: awake, alert HEENT: normocephalic, atraumatic, good hearing acuity, moist mucous membranes Resp: good air exchange, breathing comfortably with no accessory muscle use CVS: good distal perfusion x 4, GI: soft, NTTP, ND : no SPT, no CVAT, diaz catheter not present MSK: no pitting edema, no clubbing Neuro: non-focal, moving all extremities Psych: cooperative, euthymic mood Assessment/plan: Acute COPD exacerbation -Continue with DuoNeb's and Solu-Medrol -Supplemental oxygen Debility -PT consult Chronic conditions: Seizure disorder -Continue with home meds once confirmed DVT prophylaxis -Heparin subcu The patient is admitted with an anticipated less than 2 midnight stay for evaluation of COPD exacerbation. CODE STATUS: Full Code Discussed with: Patient Anticipated discharge date: Tomorrow AM. Anticipated discharge place: Home Objective - Vital Signs Vital signs: Vital Signs Temp 97.6 F 01/05/22 07:00 Pulse 76 01/05/22 11:15 Resp 18 01/05/22 07:00 BP 133/81 01/05/22 07:00 Pulse Ox 97 01/05/22 07:00 FiO2 Intake & Output 01/04/22 01/05/22 01/05/22 18:59 06:59 18:59 Intake Total 118 118 Output Total 400 500 400 Balance -282 -500 -282 Weight 90.718 kg Intake: Oral 118 118 Output: Urine 400 500 400 Other: # Voids 1 - Labs CBC & Chem 7: 01/04/22 11:46 01/04/22 11:46
[2022-01-06] MEDS: methylPREDNISolone SOD SUCCI 125 MG/2 ML VIAL IV SCH ×2 (05:54→11:38)
[2022-01-06] MEDS: IPRATROPIUM-ALBUTEROL 3 ML NEB INHALATION SCH ×2 (07:33→10:52)
[2022-01-06] MEDS: levETIRAcetam 500 MG TAB PO SCH (07:45)
[2022-01-06] MEDS: CLOPIDOGREL 75 MG TAB PO SCH (07:45)
[2022-01-06] MEDS: ATORVASTATIN 40 MG TAB PO SCH (07:45)
[2022-01-06] MEDS: ASPIRIN 81 MG PO SCH (07:45)
[2022-01-06] MEDS: HEPARIN SODIUM,PORCINE/PF 5,000 UNIT/0.5 ML SYRINGE SQ SCH (07:45)
[2022-01-06] MEDS: NIFEdipine XL 30 MG TAB.ER.24 PO SCH (07:46)
[2022-01-06] MEDS: LOSARTAN 25 MG TAB PO SCH (07:46)
[2022-01-06 08:33] VITALS: BP 131/79; TEMP 97.5
[2022-01-06 10:39] VITALS: RESP 19
[2022-01-06 11:38] VITALS: PULSE 95
--- NOTE | 2022-01-06 12:07 | P.DS ---
Providers Date of admission: 01/04/22 02:16 Expected date of discharge: 01/06/22 Attending physician: Paul Vazquez MD Primary care physician: Stated None Hospital Course: The patient is a 61-year-old male with a PMH of COPD, seizure disorder who presents to the emergency room with complaints of shortness of breath. The patient reports that over the past 2 days, he has been expressing gradually worsening shortness of breath and diffuse weakness. He reports that yesterday he had fallen down and was unable to stand up due to the profound weakness diffusely. He reports cough that is worse from his usual with associated shortness of breath and wheezing. Denies chest pain, nausea, vomiting, fever, chills. Of note, the patient was recently admitted last month for similar complaints and was treated for acute COPD exacerbation. Chest x-ray in the emergency room was unremarkable. Patient was started on DuoNeb scheduled and as needed for shortness of breath and wheezing. Restarted on supplemental oxygen to maintain O2 saturation greater than 92%. Oxygen was able to be weaned off. Patient was seen and examined. No acute events overnight. Patient reported significant improvement in his breathing. Stated he was 90% back to baseline. He was requesting to be discharged home. DME prescription signed to obtain nebulizer machine. He'll be prescribed inhalers and Medrol Dosepak on discharge. He is advised to follow-up with his PCP within 1-2 days of discharge. He is advised follow-up with pulmonology within 1 week of discharge. Patient verbalized understanding of the plan. General: Disheveled, no distress, appears older than stated age, obese Derm: no unusual rashes/lesions, warm Head: atraumatic, normocephalic, symmetric Eyes: EOMI, no lid lag, anicteric sclera ENT: Nose and ears atraumatic Neck: No cervical lymphadenopathy, trachea midline, supple Mouth: no lip lesion, mucus membranes moist Cardiovascular: S1S2 reg, no murmur Lungs: End expiratory wheezing, no rales, no accessory muscle use Ext: no gross muscle atrophy, no contractures, Neuro: no gross focal neuro deficits Psych: Alert, oriented, appropriate affect Discharge diagnosis: Acute hypoxic respiratory failure Acute COPD exacerbation Leukocytosis Macrocytosis Debility Seizure disorder Pertinent Studies: Chest x-ray Patient Condition at Discharge: Stable Plan - Discharge Summary Discharge Rx Participant: No New Discharge Prescriptions: New Fluticasone Propion/Salmeterol [Advair 500-50 Diskus] 1 puff INHALATION BID #1 each RX: Ipratropium-Albuterol Nebulize [Duoneb 0.5 mg-3 mg/3 ml Soln] 3 ml INHALATION RT-QID PRN #120 each PRN Reason: Shortness Of Breath Or Wheezing methylPREDNISolone Dose Pack [Medrol Dose Pack] 4 mg PO DIRECTED #1 packet Continue RX: Aspirin 81 mg PO DAILY #30 tab RX: levETIRAcetam [Keppra] 500 mg PO Q12HR #60 tab RX: Atorvastatin [Lipitor] 40 mg PO DAILY #30 tab RX: EPINEPHrine [Primatene Mist] 2 puff INHALATION RT-HS RX: Losartan [Cozaar] 25 mg PO DAILY #30 tab RX: Clopidogrel [Plavix] 75 mg PO DAILY #30 tab RX: NIFEdipine XL [Procardia XL] 30 mg PO DAILY #30 tab RX: Acetaminophen Tab [Tylenol] 650 mg PO Q6HR PRN tab PRN Reason: Mild Pain Or Fever > 100.5 Changed RX: Albuterol Inhaler [Ventolin Hfa Inhaler] 1 puff INHALATION RT-QID PRN #1 each PRN Reason: Shortness Of Breath Discharge Medication List RX: EPINEPHrine [Primatene Mist] 2 puff INHALATION RT-HS 12/18/21 [History] RX: Acetaminophen Tab [Tylenol] 650 mg PO Q6HR PRN tab 12/23/21 [Rx] RX: Aspirin 81 mg PO DAILY #30 tab 12/23/21 [Rx] RX: Atorvastatin [Lipitor] 40 mg PO DAILY #30 tab 12/23/21 [Rx] RX: Clopidogrel [Plavix] 75 mg PO DAILY #30 tab 12/23/21 [Rx] RX: Losartan [Cozaar] 25 mg PO DAILY #30 tab 12/23/21 [Rx] RX: NIFEdipine XL [Procardia XL] 30 mg PO DAILY #30 tab 12/23/21 [Rx] RX: levETIRAcetam [Keppra] 500 mg PO Q12HR #60 tab 12/23/21 [Rx] Fluticasone Propion/Salmeterol [Advair 500-50 Diskus] 1 puff INHALATION BID #1 each 01/06/22 [Rx] RX: Albuterol Inhaler [Ventolin Hfa Inhaler] 1 puff INHALATION RT-QID PRN #1 each 01/06/22 [Rx] RX: Ipratropium-Albuterol Nebulize [Duoneb 0.5 mg-3 mg/3 ml Soln] 3 ml INHALATION RT-QID PRN #120 each 01/06/22 [Rx] methylPREDNISolone Dose Pack [Medrol Dose Pack] 4 mg PO DIRECTED #1 packet 01/06/22 [Rx] Follow up Appointment(s)/Referral(s): Lizandro Lin DO [Doctor of Osteopathic Medicine] - 01/26/22 10:00 am (With Dr. Underwood) None,Stated [Primary Care Provider] - 1-2 days Patient Instructions/Handouts: How to Stop Smoking (DC), COPD (Chronic Obstructive Pulmonary Disease) (DC) Activity/Diet/Wound Care/Special Instructions: Diet: Cardiac FU PCP within 1-2 days of discharge. FU with Pulmonology within 1 week of DC. Take all medications as advised. Discharge Disposition: HOME SELF-CARE
== END 2022-01-06 14:34 | disposition home or self-care (01) ==
LOC: EC 20:45 → 6NMEDSUR 01-04 02:16
PROVIDERS: ADMIT Internal Medicine; ATTEND Internal Medicine
DX: J44.1 Chronic obstructive pulmonary disease with (acute) exacerbation (principal); J96.01 Acute respiratory failure with hypoxia; D72.829 Elevated white blood cell count, unspecified; D75.89 Other specified diseases of blood and blood-forming organs; G40.909 Epilepsy, unspecified, not intractable, without status epilepticus; R53.81 Other malaise; W19.XXXA Unspecified fall, initial encounter; Z79.82 Long term (current) use of aspirin; Z79.02 Long term (current) use of antithrombotics/antiplatelets; Z79.899 Other long term (current) drug therapy; Z87.891 Personal history of nicotine dependence; Z82.5 Family history of asthma and other chronic lower respiratory diseases
CPT/HCPCS: 96376 ×3; 96372 ×3; 96361; 96374; 96375; 99285; 94640 ×6; 94760 ×2; 93005; 97116; 97110; 97162; 83880; 80053; 83735; 84484; 85025; 85610; 85730; 71046; G0378 ×3; J2930 ×3; J2270; J1644 ×3

== ENCOUNTER → 2022-04-06 | Outpatient (CLI) | payer OTHER ==
--- NOTE | 2022-04-06 15:54 | MR ---
EXAMINATION TYPE: MR cervical spine wo con DATE OF EXAM: 04/06/2022 INDICATION: Patient age:Male; 62 years old; Reason for study: M54.2 Neck Pain; Neck pain COMPARISON: None. TECHNIQUE: Multi planar, multi sequence imaging was performed utilizing: T1-weighted, T2-weighted, an d turbo inversion recovery imaging of the cervical spine. IV Contrast: None FINDINGS: Alignment: The cervical vertebral bodies have preserved heights. Alignment is within normal limits gi karmen patient positioning. Bones: Degeneration changes throughout the cervical spine with disc space narrowing and osteophyte fo rmation. There is mild inversion recovery signal in the adjoining C4-C5 discs. Cord: The spinal cord is unremarkable with regards to their signal intensity and morphology. Discs: Disc desiccation is present. C2-C3: No significant disc pathology. The spinal canal is patent. No neural foraminal stenosis. C3-C4: A disc osteophyte complex is present with mild spinal canal stenosis. Bilateral facet and unc overtebral joint arthropathy are present with mild bilateral neural foraminal stenosis. C4-C5: A disc osteophyte complex is present with moderate to severe spinal canal stenosis. Bilateral facet and uncovertebral joint arthropathy are present with moderate bilateral neural foraminal steno sis. C5-C6: A disc osteophyte complex is present with mild spinal canal stenosis. Bilateral facet and unc overtebral joint arthropathy are present with moderate bilateral neural foraminal stenosis. C6-C7: A disc osteophyte complex is present with mild spinal canal stenosis. Bilateral facet and unc overtebral joint arthropathy are present with moderate bilateral neural foraminal stenosis. C7-T1: No significant disc pathology. The spinal canal is patent. No neural foraminal stenosis. Other: High T2 foci within the ha. IMPRESSION: 1. C4-C5 moderate to severe spinal canal stenosis secondary disc osteophyte complex. 2. Degeneration with active inflammation within the C4-C5 adjoining endplates. 3. Multilevel disc degeneration changes with facet joint uncovertebral joint arthropathy with multile emily moderate neural foraminal stenosis. Findings worse at C4-C5 and C5-C6. 4. High T2 signal foci within the ha could represent perivascular spaces versus remote injuries.
== END | disposition home or self-care (01) ==
LOC: RADMRIMAIN 14:25
PROVIDERS: ATTEND Psychiatry & Neurology Neurology
DX: M50.30 Other cervical disc degeneration, unspecified cervical region (principal); M47.812 Spondylosis without myelopathy or radiculopathy, cervical region; M48.02 Spinal stenosis, cervical region; M25.78 Osteophyte, vertebrae; M99.71 Connective tissue and disc stenosis of intervertebral foramina of cervical region
CPT/HCPCS: 72141

== ENCOUNTER → 2022-08-27 | Outpatient (CLI) | payer OTHER ==
--- NOTE | 2022-08-28 07:53 | MR ---
EXAMINATION TYPE: MR lumbar spine wo con DATE OF EXAM: 08/27/2022 COMPARISON: None HISTORY: Low back pain, tired, loss of balance CONTRAST: 0 mL intravenous Gadavist. TECHNIQUE: Multiplanar, multisequence images of the lumbar spine were acquired. FINDINGS: L5-S1: Broad-based disc bulge extends into the epidural space. No cord contact or deformity is eviden t. No spinal canal stenosis. Neural foramen are patent. L4-L5: Right paracentral disc bulging extending into the right lateral direction is present. This has extension beyond the endplate of L5. Correlate with right L5 radicular symptoms. Neural foramen are patent. There is increased signal within the posterior endplates at L4-5 on T2-weighted sequences. Th is can be compatible with some Modic type I degenerative change. If there is clinical concern for dis citis, contrast MRI would be recommended. L3-L4: Far left lateral disc bulge is present. This potentially some displacement of the nerve root o utside the foramen on the left. Correlate with left L4 radicular symptoms. Mild disc bulge has anteri or thecal sac flattening. No focal disc herniation within the spinal canal is evident. Neural foramen appear patent. L2-L3: No significant disc bulge or disc herniation. No spinal canal stenosis. No foraminal stenosi s. L1-L2: No significant disc bulge or disc herniation. No spinal canal stenosis. No foraminal stenosi s. T12-L1: No significant disc bulge or disc herniation. No spinal canal stenosis. No foraminal stenos is. Some disc desiccation is present at L5-S1. IMPRESSION: 1. Right paracentral disc bulge at L4-5, correlate with right L5 radicular symptoms. 2. If there is clinical concern for discitis at L4-5, MRI with contrast could be performed. 3. Far left lateral disc bulging L3-4, concerning for left L4 radicular symptoms.
== END | disposition home or self-care (01) ==
LOC: RADMRIMAIN 14:29 → EEVIPCON 14:45
PROVIDERS: ATTEND Psychiatry & Neurology Neurology
DX: M51.16 Intervertebral disc disorders with radiculopathy, lumbar region (principal); M47.26 Other spondylosis with radiculopathy, lumbar region
CPT/HCPCS: 72148

== ENCOUNTER → 2022-10-01 | Outpatient (CLI) | payer OTHER ==
--- NOTE | 2022-10-01 14:21 | CTL ---
EXAMINATION TYPE: CT Low Dose Lung DATE OF EXAM: 10/01/2022 2:05 PM CLINICAL INDICATION:Male, 62 years old with history of Z87.891; Personal history of tobacco use-quit smoking , history of tobacco use. COMPARISON: None. TECHNIQUE: Multiple axial non-contrast scans were obtained from approximately the lung apices through the upper abdomen. Coronal and sagittal reformatted images were obtained. Low dose technique was uti lized. CT DLP: 84.60 mGycm, Automated exposure control for dose reduction was used. CT Contrast: Contrast used: None Oral contrast used: None FINDINGS: ======== Lack of intravenous contrast and low dose technique limits the evaluation of the vascular and soft ti ssue structures. LUNGS: No evidence of pulmonary fibrosis. No evidence of focal consolidation, pneumothorax or pleural effusion. Mild centrilobular emphysema changes are seen throughout the lungs. Nodules: RUL: None. RML: None. RLL: None. TULIO: None. LLL: Intrafissural lymph node series 3 image 164. AIRWAY: Patent and unremarkable. HEART: Size within normal limits. Mild aortic leaflet valve calcifications. MEDIASTINUM: No gross evidence of adenopathy. VASCULATURE: No aortic aneurysm. MUSCULOSKELETAL: Mild disc degeneration changes are present throughout the thoracolumbar spine. SOFT TISSUES/LYMPH NODES: Mild bilateral gynecomastia changes. LOWER NECK: No significant findings. UPPER ABDOMEN: No significant findings. IMPRESSION: 1. No clinically significant pulmonary nodules. 2. Mild emphysema changes. 3. Mild aortic valve leaflet calcifications. CT LUNG RAD AND CT CHEST RECOMMENDATION: Lung-Rad 2 Benign Appearance or Behavior: Continue annual sc reening with LDCT in 12 months. S Modifier (other clinically significant findings): None Recommend smoking cessation (if current smoker), or continuation of smoking cessation (if prior smoke r). Annual screening for lung cancer with low-dose computed tomography is recommended in adults ages 55 to 77 years who have a 30 pack-year smoking history and currently smoke or have quit within the pa st 15 years. Screening should be discontinued once a person has not smoked for 15 years or develops a health problem that substantially limits life expectancy or the ability or willingness to have curat elana lung surgery. Lung rads 2021 [email or web address]
== END | disposition home or self-care (01) ==
LOC: RADCTMAIN 13:47
PROVIDERS: ATTEND Family Medicine
DX: Z12.2 Encounter for screening for malignant neoplasm of respiratory organs (principal); J43.9 Emphysema, unspecified; I35.8 Other nonrheumatic aortic valve disorders; Z87.891 Personal history of nicotine dependence
CPT/HCPCS: 71271

== ENCOUNTER → 2023-05-13 | Outpatient (CLI) | payer OTHER ==
[2023-05-13 18:57] LABS: ALT 14 U/L (10-49); AST 18 U/L (14-35); Albumin 4.5 g/dL (3.8-4.9); Albumin/Globulin Ratio 1.61 Ratio (1.60-3.17); Alkaline Phosphatase 144 U/L (41-126); BUN/Creat Ratio 17.18 Ratio (12.00-20.00); Blood Urea Nitrogen 18.9 mg/dL (9.0-27.0); Calcium 10.1 mg/dL (8.7-10.3); Carbon Dioxide 23.6 mmol/L (21.6-31.8); Chloride 102 mmol/L (96-109); Chol/HDL Ratio 4.77 Ratio; Globulin 2.8 g/dL (1.6-3.3); Glucose 103 mg/dL (70-110); Potassium 4.6 mmol/L (3.5-5.5); Sodium 140 mmol/L (135-145); Total Bilirubin 0.8 mg/dL (0.3-1.2); Total Protein 7.3 g/dL (6.2-8.2)
== END | disposition home or self-care (01) ==
LOC: LABWHC1 12:57
PROVIDERS: ATTEND Internal Medicine Interventional Cardiology
DX: E78.2 Mixed hyperlipidemia (principal)
CPT/HCPCS: 36415; 80053; 80061

== ENCOUNTER → 2023-10-16 | Outpatient (CLI) | payer OTHER ==
--- NOTE | 2023-10-16 09:56 | MR ---
EXAMINATION TYPE: MR Prostate wo/w con DATE OF EXAM: 10/16/2023 9:14 AM COMPARISON: None. CLINICAL INDICATION:Male, 63 years old with history of C61 MALIGNANT NEOPLASM OF PROSTATE; Prostate c ancer. TECHNIQUE: Multi-planar, multi-sequence imaging of the pelvis is performed prior to and following the uncomplicated administration of bolus intravenous gadolinium. CONTRAST: 8 Gadavist Interpretive Criteria: PI-RADS v2.1 SERUM PSA: PSA -24 = 7.46 SURGICAL PATHOLOGY: No data available. FINDINGS: Prostatic dimensions: 4.4 x 4.4 x 2.0 cm. "Bullet" Volume:38.01 (PSA density=0.20 ng/mL/mL) CENTRAL GLAND (Central and Transition Zones/CZ+TZ): Multiple bilateral, heterogenous appearing hypertrophic stromal nodules, without suspicious lesion. M edian lobe hypertrophy with protrusion into the base of the bladder. (PI-RADS 2) PERIPHERAL ZONE (PZ): Bilateral linear, indistinct wedgelike areas of low ADC, and low T2 signal, No evidence of masslike a bnormality, or localized perfusional hypervascularity, to further suggest a focus of clinically signi ficant prostate cancer. (PI-RADS 2) SEMINAL VESICLES (SV): Symmetric and unremarkable. PERIPROSTATIC TISSUES: Unremarkable. LYMPH NODES: No enlarged pelvic lymph node. REMAINING PELVIS: Urinary bladder is decompressed and otherwise within normal limits. No abnormal free or organized intrapelvic fluid collection. No pathologic bowel dilation or mural thickening. Colonic diverticula are present. No hernia visualized OSSEOUS STRUCTURES: No suspicious osseous abnormality. IMPRESSION: 1. No specific features for high-risk prostate cancer. Maximum PI-RADS score: 2. 2. Mild BPH, estimated gland volume 38.01 mL. 3. No suspicious osseous lesion. No lymphadenopathy. No evidence of prostate adenocarcinoma involving the periprostatic tissues.
== END | disposition home or self-care (01) ==
LOC: RADMRIMAIN 08:01
PROVIDERS: ATTEND Radiology Radiation Oncology
DX: C61 Malignant neoplasm of prostate (principal); N40.0 Benign prostatic hyperplasia without lower urinary tract symptoms
CPT/HCPCS: 72197; A9585

== ENCOUNTER 2023-11-18 10:10 | Day surgery (SDC) | payer OTHER ==
[2023-11-18] MEDS ORDERED: fentaNYL (PF) 50 MCG/ML 2 ML AMP ONE (13:28)
[2023-11-18] MEDS ORDERED: PROPOFOL 10 MG/ML 20 ML VIAL IV ONE (13:28)
[2023-11-18] MEDS ORDERED: SODIUM CHLORIDE 0.9% 50 ML BAG ONE (13:28)
[2023-11-18] MEDS ORDERED: LACTATED RINGERS 1,000 ML BAG ONE (13:28)
[2023-11-18] MEDS ORDERED: ceFAZolin 1,000 MG VIAL ONE (13:28)
[2023-11-18] MEDS ORDERED: LIDOCAINE 1% INJ 10MG/ML (20 ML MDV) ONE ×2 (13:28)
--- NOTE | 2023-11-19 15:58 | OP ---
OPERATIVE REPORT DATE OF SERVICE : 11/18/2023 PREOPERATIVE DIAGNOSIS: Adenocarcinoma of the prostate. POSTOPERATIVE DIAGNOSIS: Adenocarcinoma of the prostate. PROCEDURE PERFORMED: SpaceOAR implant. ANESTHESIA: MAC. ESTIMATED BLOOD LOSS: 5 mL. FLUIDS GIVEN: 200 mL crystalloid. COMPLICATIONS: None. SPECIMEN: Removed none. OPERATIVE FINDINGS: Over 15 mm of separation created between prostate and rectum. INDICATIONS: The patient is a 63-year-old white male with recently diagnosed prostate cancer. He has elected to be treated with radiation therapy and now comes for SpaceOAR implant. DESCRIPTION OF PROCEDURE: The patient was taken to the operating room and placed in the dorsal lithotomy position, with his legs supported in Salazar stirrups. The external genitalia and perineum were prepped and draped sterilely. 1% lidocaine was injected subcutaneously within the midline of the perineum for anesthesia. A spinal needle was then advanced to the diaphragm to anesthetize all of the subcutaneous tissues. Next, the SpaceOAR constituents were mixed in the standard fashion, and the treatment needle was passed through the midline of the perineum and advanced under ultrasonic guidance (using the [employer] transrectal ultrasound probe) into the space between the prostate and the rectum, at the mid gland level. The SpaceOAR was then injected, achieving greater than 15 mm of separation between the prostate and rectum. The transrectal ultrasound probe was then removed and the procedure was terminated. The patient tolerated the procedure well, was taken to the recovery room in a stable condition. MMODL / IJN: [id number] / MTDD
--- NOTE | 2023-12-13 10:01 | HP ---
HISTORY AND PHYSICAL DATE OF SURGERY: 11/18/2023 CHIEF COMPLAINT: Prostate cancer. HISTORY OF PRESENT ILLNESS: The patient is a 63-year-old white male found earlier this year to have an elevated PSA level of 7.46. On examination, a right apical prostate nodule was noted. He underwent a prostate ultrasound, revealing a prostate volume of 25 mL. 5 of 12 biopsies showed evidence of prostate cancer. He has elected to be treated with radiation therapy. He now comes for SpaceOAR implant. PAST MEDICAL HISTORY: COPD, hyperlipidemia, status post CVA in 2021. MEDICATIONS: 1. Nifedipine 30 mg ER 1 daily. 2. Levetiracetam 500 mg b.i.d. 3. Losartan 25 mg daily. 4. Plavix 75 mg daily. 5. Atorvastatin 40 mg daily. 6. Ventolin inhaler p.r.n. 7. Albuterol inhaler four times daily. ALLERGIES: None. PAST SURGICAL HISTORY: Unknown. FAMILY HISTORY: Negative for prostate cancer. SOCIAL HISTORY: The patient is . He quit smoking in 2021. REVIEW OF SYSTEMS: CARDIOVASCULAR: Significant for edema. RESPIRATORY: Significant for dyspnea. GENITOURINARY: Denies dysuria, hematuria and urinary frequency. PHYSICAL EXAMINATION: GENERAL: The patient is well-developed, well-nourished, cooperative white male, in no apparent distress. VITAL SIGNS: Pulse 80, respirations 16, blood pressure 132/76. Examination by system: CHEST: Normal respiratory effort. ABDOMEN: Soft, nontender. No mass. GENITOURINARY: Normal phallus. Normal testis. RECTAL: Normal anal sphincter tone. No rectal masses. The prostate is mildly enlarged with right apical prominence. IMPRESSION: Adenocarcinoma of the prostate. PLAN: SpaceOAR implant. The rationale for this has been reviewed in detail with the patient and his brother, to reduce rectal toxicity associated with radiation therapy. They have also been made aware of potential risks, which include anesthesia, bleeding, and infection. They are aware that the procedure will need to be aborted if there is evidence of rectal wall perforation during the procedure. MMODL / IJN: [id number] /
== END 2023-11-18 14:45 ==
LOC: OR 10:10
PROVIDERS: ATTEND Urology
DX: C61 Malignant neoplasm of prostate (principal); N40.2 Nodular prostate without lower urinary tract symptoms; I10 Essential (primary) hypertension; E78.5 Hyperlipidemia, unspecified; J44.9 Chronic obstructive pulmonary disease, unspecified; Z87.891 Personal history of nicotine dependence; Z79.02 Long term (current) use of antithrombotics/antiplatelets; Z79.899 Other long term (current) drug therapy; Z79.51 Long term (current) use of inhaled steroids; Z86.73 Personal history of transient ischemic attack (TIA), and cerebral infarction without residual deficits

== ENCOUNTER → 2024-02-03 | Outpatient (CLI) | payer MEDICARE, OTHER ==
--- NOTE | 2024-02-03 16:01 | CTL ---
EXAMINATION TYPE: CT Low Dose Lung DATE OF EXAM ORDERED: 02/03/2024 COMPARISON: CT Low Dose Lung 10/01/2022, CTA chest 12/18/2021 CLINICAL INDICATION: Male, 64 years old with history of Z12.2, Z87.891; PHH, Personal hx nicotine dep endence, 2 ppd x 20 years, former smoker, hx COPD, Lung cancer screening, History of Smoking/tobacco use. TECHNIQUE: Low dose computed tomography scan was performed through the chest at 1 mm thick sections a nd reconstructed images in multiple planes at 1 mm and [address] DLP: 113.[address] CTDI: 2.9 mGy Automated exposure control for dose reduction was used. CT DIAGNOSTIC QUALITY: Satisfactory FINDINGS: Nodules: Stable intrafissural lymph node along the left major fissure measuring up to 4 mm (series 6, image 34 ). No new or enlarging pulmonary nodules. LUNGS: COPD: Severity: Mild Fibrosis: Severity: None Lymph nodes: Stable mildly prominent mediastinal lymph nodes. Calcified small right hilar lymph nodes . Other findings: Linear scarring within the lingula. RIGHT PLEURAL SPACE: Effusion: None Calcification: None Thickening: None Pneumothorax: None LEFT PLEURAL SPACE: Effusion: None Calcification: None Thickening: None Pneumothorax: None HEART: Heart Size: Size within normal limits, mild aortic leaflet valvular calcifications. Coronary Calcification: Small Pericardial Effusion: Trace OTHER FINDINGS: Upper abdomen: Cholelithiasis. Bony thorax: None Supraclavicular region: None Other: Stable ectasia of the ascending thoracic aorta measuring up to 3.9 cm. Bilateral gynecomastia. IMPRESSION: 1. No clinically significant pulmonary nodules. 2. Mild COPD changes. CT LUNG RAD AND CT CHEST RECOMMENDATION: Lung-Rad 1 Negative: Continue annual screening with LDCT in 12 months. S Modifier (other clinically significant findings): None [facility], , 02/03/2024 3:58 PM
== END | disposition home or self-care (01) ==
LOC: RADCTMAIN 14:15
PROVIDERS: ATTEND Family Medicine
DX: Z12.2 Encounter for screening for malignant neoplasm of respiratory organs (principal); J44.9 Chronic obstructive pulmonary disease, unspecified; K80.20 Calculus of gallbladder without cholecystitis without obstruction; N62 Hypertrophy of breast; Z87.891 Personal history of nicotine dependence
CPT/HCPCS: 71271

== ENCOUNTER → 2024-02-07 | Outpatient (CLI) | payer MEDICARE, OTHER | END | disposition home or self-care (01) | LOC: LABWHC1 14:20 | PROVIDERS: ATTEND Radiology Radiation Oncology | DX: C61 Malignant neoplasm of prostate (principal); Z87.891 Personal history of nicotine dependence | CPT/HCPCS: 36415; 84153 ==

== ENCOUNTER → 2024-04-27 | Outpatient (CLI) | payer OTHER | END | disposition home or self-care (01) | LOC: LABWHC1 11:28 | PROVIDERS: ATTEND Radiology Radiation Oncology | DX: C61 Malignant neoplasm of prostate (principal); Z87.891 Personal history of nicotine dependence | CPT/HCPCS: 36415; 84153 ==